=== PATIENT | male | born 1945 | race Caucasian/White ===

== ENCOUNTER 2019-07-26 13:22 | Observation (INO) | payer MEDICARE, SELFPAY ==
[2019-07-26] VITALS (9 sets, daily range): BP systolic 131–172; BP diastolic 74–86; PULSE 61–77; RESP 13–20; TEMP 35.9–36.7; O2SAT 97–99; BMI 35.2; BMI 35.3
--- NOTE | ~2019-07-26 | XR_ITS ---
EXAMINATION: XR chest 2V DATE: 07/26/2019 13:47 INDICATION: Left-sided chest pain TECHNIQUE: PA and lateral views of the chest are obtained. COMPARISON: 02/10/2019 FINDINGS: The lungs are free of acute opacities. There is no pleural effusion or pneumothorax. The ca rdiomediastinal silhouette is normal. There is moderate thoracic spondylosis. IMPRESSION: 1. No acute cardiopulmonary abnormality. Reviewed, dictated and finalized at location A.
--- NOTE | ~2019-07-26 | CT_ITS ---
EXAMINATION: CTA chest PE protocol DATE: 07/26/2019 15:00 INDICATION: Shortness of breath. TECHNIQUE: Computed tomography angiography (CTA) of the chest was performed with 100 mL Omnipaque-350 intravenous contrast timed to evaluate the pulmonary arteries. Coronal maximum intensity projection 3D-reconstructions were created by the technologist. Automated exposure control and iterative reconst ruction technique were employed. The dose-length product was 883.95 mGy-cm. COMPARISON: Chest CT 06/23/2017 FINDINGS: The lungs demonstrate mild atelectasis. There is mild scarring in paraspinal right lower lo be. No pleural effusion. The heart size is normal. There are calcifications of the aortic valve and c oronary arteries. There is no pulmonary embolus. There is severe cervical spondylosis and moderate th oracic spondylosis. IMPRESSION: 1. No pulmonary embolus. Reviewed, dictated and finalized at location A. IMPRESSION: 1. No pulmonary embolus.
--- NOTE | 2019-07-26 13:28 | ECG_ITS ---
Measurements Intervals [place] Rate: 66 P: 41 MI: 200 QRS: -17 QRSD: 105 T: 7 QT: 389 QTc: 408 Interpretive Statements SINUS RHYTHM VENTRICULAR COUPLET BORDERLINE AV CONDUCTION DELAY VOLTAGE CRITERIA FOR LVH BORDERLINE ECG Electronically Signed On 07-26-2019 15:28:48 CDT by Gbaino Juarez D.O.
[2019-07-26 13:48] LABS: Basophils Percent Auto 0.3 % (0.2-1.2); Eosinophils Absolute Auto 0.1 K/mm3 (0-0.3); Eosinophils Percent Auto 1.8 % (0-4.4); Hematocrit 42.5 % (42.0-52.0); Immature Granulocyte Absolute 0.02 K/mm3 (0.00-0.031); Immature Granulocyte Percent A 0.3 % (0-0.5); Lymphocytes Absolute Auto 1.25 K/mm3 (0.9-3.2); Lymphocytes Percent Auto 17.7 % (18.3-44.2); Mean Corpuscular HGB Conc 32.9 g/dl (32-36); Mean Corpuscular Hemoglobin 28.9 pg (26-34); Mean Corpuscular Volume 87.6 fl (80-100); Mean Platelet Volume 11.4 fl (7.4-10.4); Monocytes Absolute Auto 0.6 K/mm3 (0.1-0.6); Monocytes Percent Auto 9.1 % (2.6-8.5); Neutrophils Percent Auto 70.8 % (45.5-73.1); Platelet Count Result 219 k/mm3 (150-375); Red Blood Count 4.85 M/mm3 (4.6-6.20); Red Cell Distribution Width 14.1 % (11.5-14.5); White Blood Count 7.1 K/mm3 (4.5-10.0)
[2019-07-26 13:58] LABS: Partial Thromboplastin Time 28.1 SECONDS (22.3-36.8)
[2019-07-26 14:00] LABS: Blood Urea Nitrogen 17 mg/dL (9-20); Calcium 9.5 mg/dL (8.4-10.2); Carbon Dioxide 21 mmol/L (22-30); Chloride 104 mmol/L (98-107); Estimated CRCL calculation 79 ml/min; Estimated Glomerular Filt Rate > 60; Glucose 95 mg/dL (75-110); Potassium 3.8 mmol/L (3.4-5.0); Sodium 133 mmol/L (137-145)
[2019-07-26 14:08] LABS: Alanine Aminotransferase 20 U/L (4-50); Albumin Level 4.3 g/dL (3.5-5.1); Alkaline Phosphatase 37 U/L (38-126); Aspartate Amino Transferase 27 U/L (17-59); Bilirubin,Total 0.4 mg/dL (0.2-1.3)
[2019-07-26 14:11] LABS: Lipase 63 U/L (23-300)
[2019-07-26 14:12] LABS: Troponin I < 0.012 ng/mL (0.000-0.034)
[2019-07-26 14:21] LABS: NT Pro B Type Natriuretic Pept 86 PG/ML (5-100)
[2019-07-26 14:28] LABS: D Dimer 1.59 ug/mL (<0.48)
--- NOTE | 2019-07-26 16:18 | ED.CHESTPAIN ---
HPI - Chest Pain General Chief Complaint: Chest Pain <JA Jones Last Filed: 07/26/19 18:39> Stated Complaint: Chest Pain <JA Jones Last Filed: 07/26/19 18:39> Time Seen by Provider: 07/26/19 13:39 <JA Jones Last Filed: 07/26/19 18:39> Source: patient <JA Jones Last Filed: 07/26/19 18:39> Mode of arrival: ambulatory <JA Jones Last Filed: 07/26/19 18:39> Limitations: no limitations <JA Jones Last Filed: 07/26/19 18:39> History of Present Illness HPI narrative: Patient is a 73-year-old male who presents to emergency department for evaluation of left-sided chest pain under the breast with feeling diaphoretic and nauseous that occurred this morning lasted 2 hours and resolved patient on arrival to emergency department notes no pain patient did take some aspirin prior to arrival patient denies similar occurrence in the past. Patient on arrival resting comfortably in the room in no distress denies recent illness or sick contacts. Pain did not radiate <JA Jones Last Filed: 07/26/19 18:39> Related Data Home Medications: Home Medications Medication Instructions Recorded Confirmed omega-3 360 mx-elf-rpf-fish oil 1 cap PO DAILY 12/17/18 04/10/19 1,200 mg capsule,delayed release aspirin 81 mg tablet,delayed 81 mg PO DAILY 12/19/18 04/10/19 release cyanocobalamin (vitamin B-12) 1,000 mcg PO DAILY 12/19/18 04/10/19 1,000 mcg capsule melatonin 10 mg capsule PO 12/19/18 04/10/19 cyclobenzaprine 10 mg tablet 10 mg PO ONCE tablet 12/31/18 04/10/19 <JA Jones Last Filed: 07/26/19 18:39> Allergies/Adverse Reactions: Allergies Allergy/AdvReac Type Severity Reaction Status Date / Time No Known Allergies Allergy Verified 03/06/19 08:30 <JA Jones Last Filed: 07/26/19 18:39> Review of Systems Review of Systems: All systems reviewed & are unremarkable except as noted in HPI and below <Harry Camp PA-C - Last Filed: 07/26/19 18:39> [facility] Past Medical History Medical History: Medical History Aftercare following surgery Benign prostatic hyperplasia without lower urinary tract symptoms Bilateral hip pain Carpal tunnel syndrome on both sides Cervical spinal stenosis Chest pain in adult Complete eye exam, encounter for Complex tear of medial meniscus of left knee as current injury Effusion of knee joint right Effusion, left knee Elevated PSA Encounter for long-term (current) use of other medications Encounter for screening colonoscopy Erectile dysfunction Essential hypertension Evaluation of hearing impairment Fatigue GERD without esophagitis Hearing deficit Hearing loss History of elevated PSA History of rotator cuff strain Hyperlipidemia Injury of meniscus of left knee Left carpal tunnel syndrome Muscle strain of right upper back Myoclonus Nocturnal leg movements Obesity, unspecified (11/05/15) Other chronic pain Pain of left hip joint Paresthesia of both hands Peripheral edema Pre-op testing Primary osteoarthritis of left knee Right carpal tunnel syndrome Right medial knee pain Screening for hypothyroidism Screening for prostate cancer 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
[2019-07-26 17:08] LABS: Troponin I < 0.012 ng/mL (0.000-0.034)
--- NOTE | 2019-07-26 17:31 | ECG_ITS ---
Measurements Intervals [place] Rate: 64 P: 24 NH: 197 QRS: -30 QRSD: 121 T: 3 QT: 421 QTc: 435 Interpretive Statements SINUS RHYTHM INCOMPLETE LEFT BUNDLE BRANCH BLOCK POSSIBLE LEFT VENTRICULAR HYPERTROPHY BORDERLINE ECG Electronically Signed On 07-26-2019 18:59:32 CDT by Gabino Juarez D.O.
[2019-07-26] MEDS: NITROGLYCERIN SL 0.4 MG TABLET SUBLINGUAL (17:38)
--- NOTE | 2019-07-26 17:38 | PC.NURSE ---
1737 B/P 134/84 pain 2/10 1 nitro given 1742 B/P 133/94 pain 1/10 1 nitro given 1747 B/P 132/75 pain 0/10
[2019-07-26 18:33] LABS: Add Urine Microscopic? YES; Appearance Urine Clear (Clear); Bilirubin Urine Negative (Negative); Blood Urine 1+ (Negative); Color Urine Colorless (Yellow); Glucose Urine UA Negative (Negative); Ketones Urine Negative (Negative); Leukocyte Esterase Ur Negative LEU/UL (Negative); Nitrate Urine Negative (Negative); Protein Urine Negative (Negative); RBC Urine 0-2 /hpf (0-2); Specific Grav Ur 1.005 (1.001-1.035); Urobilinogen Urine Negative mg/dL (<2.0); WBC Urine 0-3 /hpf
--- NOTE | 2019-07-26 18:48 | PC.NURSE ---
184 no pain now after the second nitro
[2019-07-26 19:58] LABS: Cholesterol 156 mg/dL (0-200); HDL Direct 49 mg/dL; Triglycerides 107 mg/dL (<150)
[2019-07-26 20:09] LABS: LDL Cholesterol Direct 92 mg/dL
[2019-07-26 20:11] LABS: Troponin I < 0.012 ng/mL (0.000-0.034)
--- NOTE | 2019-07-26 20:33 | PC.NURSE ---
This patient, Armin Self, was admitted to IMU Room 232-01 at 1944. Patient/family oriented to hospital policies and general routines including ID bracelet, bed and alarms, visiting hours, pain management, procedures, bathroom and other care routines, personal items, smoking policy, room service/diet, and visiting hours. Valuables list has been completed. Information on how to activate the Rapid Response Team has been discussed. Patient/Family are encouraged to report perceived risks to care and to ask questions if they do not understand what they are told or what they should do.
--- NOTE | 2019-07-26 20:34 | PM.IMHP ---
H&P: HPI History of Present Illness Chief complaint: chest pain Narrative: Patient is a 73 yr old man who presents to ER for evaluation of chest pain. He is my regular cardiology patient who has a history of hypertension, central sleep apnea, dyslipidemia. Reports that 2 3 days ago he noted lightheadedness, nausea and heaviness of his legs. He drank some water and symptoms resolved. This morning he was up for a couple of hours not doing anything strenuous and noted sharp mid chest pain that then went to left lateral chest intermittently. Then when it returned it was a dull pain associated with similar symptoms as 3 days prior. He felt sweaty with it and decided to come in to ER. The pain was 2/10 in intensity. He was given NTG SL x 2 and pain resolved and has not returned. Troponins are negative x 3 sets. EKG is unremarkable. D-Dimer was 1.[address] chest done which was negative fo pulm embolism, but showed severe cervical spoldylosis and mod thoracic spondylosis. Cardiovascular Procedures Echo/MUGA:: Echo (EF 60%, mild LVH, grade I diastolic dysfunction, mild , mild TR, trace PI.) - 06/25/2017 Electrophysiology:: EKG (Sinus rhythm, cannot r/o septal infarct, age indeterminate.) - 06/06/2017 Stress Tests:: SEH (Negative for ischemia; exercised for 7 min, 35 seconds.) - 06/25/2017 MPI (Lexiscan myoview: Negative for ischemia.) - 07/27/2016 Venous Duplex (No DVT of both legs.) - 06/23/[address] (No pulmonary embolus.) - 06/23/2017 Sleep Study (Complex sleep apnea with ROLDAN and central apneas.) - 01/16/2018 Sleep Study (Mod ROLDAN. Had titration study but noted central apneas also.) - 08/07/2017 CXR (Negative.) - 06/06/2017 Review of Systems Review of Systems: All systems reviewed & are unremarkable except as noted in HPI and below Constitutional: Constitutional: Reports as per HPI, Denies chills and Denies weakness Cardiovascular: Cardiovascular: Reports as per HPI, Reports chest pain, Reports diaphoresis, Denies leg edema and Reports lightheadedness Respiratory: Respiratory: Reports as per HPI and Denies dyspnea Gastrointestinal: Gastrointestinal: Reports as per HPI and Denies abdominal pain Genitourinary: Genitourinary: Reports as per HPI Musculoskeletal: Musculoskeletal: Reports as per HPI Neurologic: Reports as per HPI and Denies headache(s) [facility] Past Medical History Medical History Aftercare following surgery Benign prostatic hyperplasia without lower urinary tract symptoms Bilateral hip pain Carpal tunnel syndrome on both sides Cervical spinal stenosis Chest pain in adult Complete eye exam, encounter for Complex tear of medial meniscus of left knee as current injury Effusion of knee joint right Effusion, left knee Elevated PSA Encounter for long-term (current) use of other medications Encounter for screening colonoscopy Erectile dysfunction Essential hypertension Evaluation of hearing impairment Fatigue GERD without esophagitis Hearing deficit Hearing loss History of elevated PSA History of rotator cuff strain Hyperlipidemia Injury of meniscus of left knee Left carpal tunnel syndrome Muscle strain of right upper back Myoclonus Nocturnal leg movements Obesity, unspecified (11/05/15) Other chronic pain Pain of left hip joint Paresthesia of both hands Peripheral edema Pre-op testing Primary osteoarthritis of left knee Right carpal tunnel syndrome Right medial knee pain Screening for hypothyroidism Screening for prostate cancer Spondylosis of cervical region without myelopathy or radiculopathy Testicular hypofunction Trochanteric bursitis of left hip Unintended weight gain Surgical History Surgical History History of right knee surgery Presence of left artificial knee joint Presence of right artificial knee joint Social History Social History
[2019-07-26] MEDS: CLONAZEPAM 0.5 MG TAB 2 MG PO (22:01)
[2019-07-26] MEDS: MELATONIN 5 MG TABLET 10 MG PO (22:01)
[2019-07-26] MEDS: SIMVASTATIN 20 MG TABLET 40 MG PO (22:01)
[2019-07-26] MEDS: METOPROLOL SUCCINATE EXT REL 50 MG TABCR PO (22:01)
[2019-07-27] VITALS (9 sets, daily range): BP systolic 119–125; BP diastolic 63–75; PULSE 44–80; RESP 18–20; TEMP 35.9–36.8; O2SAT 96–99
--- NOTE | 2019-07-27 00:32 | ECG_ITS ---
Measurements Intervals [place] Rate: 65 P: 34 ND: 218 QRS: -9 QRSD: 120 T: 7 QT: 439 QTc: 456 Interpretive Statements SINUS RHYTHM BORDERLINE AV CONDUCTION DELAY INCOMPLETE LEFT BUNDLE BRANCH BLOCK BORDERLINE ECG Electronically Signed On 07-27-2019 9:09:53 CDT by Gabino Juarez D.O.
[2019-07-27] MEDS: ASPIRIN 81 MG ENTERIC TABLET PO (09:08)
[2019-07-27] MEDS: CYANOCOBALAMIN 1,000 MCG TABLET 1000 MCG PO (09:08)
[2019-07-27] MEDS: LOSARTAN POTASSIUM 100 MG TABLET PO (09:08)
[2019-07-27] MEDS: ISOSORBIDE MONONITRATE 30 MG TAB.ER.24H PO (09:08)
[2019-07-27] MEDS: OMEGA 3 POLYUNSAT FATTY ACIDS 1 GM CAP PO (09:08)
[2019-07-27] MEDS: ACETAMINOPHEN 325 MG TABLET 650 MG PO (09:08)
--- NOTE | 2019-07-27 09:10 | PM.DS ---
DS: Admitting Diagnosis Admitting Diagnosis Admitting Diagnosis: Chest pain, unspecified DS: Summary Hospital Course Reason for hospitalization: Chest pain Hospital Course: Patient is a 73 yr old man who presents to ER for evaluation of chest pain. He is my regular cardiology patient who has a history of hypertension, central sleep apnea, dyslipidemia. Reports that 2-3 days ago he noted lightheadedness, nausea and heaviness of his legs. He drank some water and symptoms resolved. This morning he was up for a couple of hours not doing anything strenuous and noted sharp mid chest pain that then went to left lateral chest intermittently. Then when it returned it was a dull pain associated with similar symptoms as 3 days prior. He felt sweaty with it and decided to come in to ER. The pain was 2/10 in intensity. He was given NTG SL x 2 and pain resolved and has not returned. Troponins are negative x 3 sets. EKG is unremarkable. D-Dimer was 1.[address] chest done which was negative fo pulm embolism, but showed severe cervical spoldylosis and mod thoracic spondylosis. Chest pain has not returned. He is feeling well other than mild headache this monring. Vitals are stable. Physical exam: General: No acute distress, alert and ortiented, comfortable. Pulm: CTAB. CVS: Regular and normal rate. No murmur. Abd: Nontender, soft. Ext: No edema. Imp: 1. Chest pain. MO ruled out by series of troponins and EKG. Could be related to stable CAD, costochondritis, or radiculopathy pain from cervical arthritis. Start Isosorbide mononitrate 30 mg daily in case it is due to CAD. Cautioned with using erectile dysfunction medication such as Viagara or Cialis or the like, and that he would need to stop using nitrate for at least 48 hours or it can drop his BP precipitously to dangerous levels. He expressed understanding of this. May d/c home and f/u with in nex 4 days he has appointment already. F/U with me in 1-2 weeks for outpatient CTA of heart. 2. Hyperlipidemia:Continue home medications. 3. Hypertension: Stable. Continue home medication. 4. Central sleep apnea. Continue CPAP at bedtime. 5. Obesity. Activity: As tolerated but avoid strenuous activity until evaluated as outpatient. Diet: Healthy heart diet. Disposition: Home. Time Spent with Patient Time attestation: Total time spent providing and/or coordinating discharge services: DS: Data Data Completed and Pending Labs on day of discharge: Labs from last 24 hours 07/26/19 07/26/19 07/26/19 19:42 19:42 18:21 WBC RBC Hgb Hct MCV MCH MCHC RDW Plt Count MPV Immature Gran % (Auto) Neut % (Auto) Lymph % (Auto) [place] % (Auto) Eos % (Auto) Baso % (Auto) Lymph # (Auto) [place] # (Auto) Eos # (Auto) Baso # (Auto) Abs Immat Gran (auto) Absolute Neuts (auto) Absolute Nucleated RBC Nucleated RBC % PT INR APTT D-Dimer Sodium Potassium Chloride Carbon Dioxide BUN Creatinine Estim Creat Clear Calc Estimated GFR Glucose Calcium Total Bilirubin Direct Bilirubin AST ALT Alkaline Phosphatase Troponin I < 0.012 NT-Pro-B Natriuret Pep Total Protein Albumin Triglycerides 107 Cholesterol 156 LDL Cholesterol Direct 92 HDL Direct 49 Lipase Urine Color Colorless Urine Appearance Clear Urine pH 6.0 Ur Specific [place] 1.005 Urine Protein Negative Urine Glucose (UA) Negative Urine Ketones Negative Ur Blood (Man) 1+ H Urine Nitrate Negative Urine Bilirubin Negative Urine Urobilinogen Negative Leukocyte Esterase Rfl Negative Urine RBC 0-2 Urine WBC 0-3 07/26/19 07/26/19 07/26/19 16:28 13:35 13:35 WBC RBC Hgb Hct MCV MCH MCHC RDW Plt Count MPV Immature Gran % (Auto) Neut % (Auto) Lymph % (Auto) [place] % (Auto) Eos % (Auto) Baso % (Auto)
[2019-07-27] MEDS: FENOFIBRATE NANOCRYSTALLIZED 145 MG TABLET PO (09:52)
== END 2019-07-27 14:47 | disposition home or self-care (01) ==
LOC: ANHED 18:39 → ANHIMU 19:34
PROVIDERS: Emergency Medicine Emergency Medical Services; Admitting Provider Internal Medicine Cardiovascular Disease; Emergency Provider General Practice; PCP Family Medicine; Visit Provider Internal Medicine Cardiovascular Disease
DX: R07.9 Chest pain, unspecified (principal); E78.5 Hyperlipidemia, unspecified; I10 Essential (primary) hypertension; G47.31 Primary central sleep apnea; E66.9 Obesity, unspecified; Z68.35 Body mass index [BMI] 35.0-35.9, adult; N52.9 Male erectile dysfunction, unspecified; N40.0 Benign prostatic hyperplasia without lower urinary tract symptoms; M47.812 Spondylosis without myelopathy or radiculopathy, cervical region; Z79.82 Long term (current) use of aspirin; Z79.899 Other long term (current) drug therapy; Z96.653 Presence of artificial knee joint, bilateral
CPT/HCPCS: 36415; 71046; 71275; 80048; 80061; 80076; 81001; 83690; 83880; 84484; 85025; 85380; 85610; 85730; 93005; 99285; A9270; G0378; Q9967

== ENCOUNTER 2020-04-14 10:54 | Outpatient (CLI) | payer MEDICARE, SELFPAY ==
--- NOTE | ~2020-04-14 | US_ITS ---
EXAMINATION: US carotid duplex BI DATE: 04/14/2020 11:28 INDICATION: Cerebral atherosclerosis. Dizziness. TECHNIQUE: Grayscale, color Doppler, and pulsed Doppler images of the cervical carotid arteries were obtained. The degree of vessel stenosis is placed in one of the following categories: normal, <50%, 5 0-69%, >=70% but less than near-occlusion, near-occlusion, or total occlusion. Note that percent sten osis relative to normal distal artery lumen diameter is indirectly measured from velocity measurement s as described by Yuan, et al. Radiology 2003; 229:340-346. COMPARISON: None. FINDINGS: RIGHT: The right common carotid artery (CCA) peak systolic velocity (PSV) is 123 cm/s. The right internal ca rotid artery (ICA) PSV is 80 cm/s. The right ICA end-diastolic velocity (EDV) is 16 cm/s. The right I CA/CCA PSV ratio is 0.6. Grayscale and color Doppler images yield an estimate of <50% diameter reduct ion from plaque in the ICA. The external carotid artery (ECA) PSV is 133 cm/s. There is antegrade arlin w in the right vertebral artery. LEFT: The left CCA PSV is 105 cm/s. The left ICA PSV is 82 cm/s. The left ICA EDV is 22 cm/s. The left ICA/ CCA PSV ratio is 0.8. Grayscale and color Doppler images yield an estimate of <50% diameter reduction from plaque in the ICA. The ECA PSV is 95 cm/s. There is antegrade flow in the left vertebral artery . IMPRESSION: 1. <50% stenosis in the right internal carotid artery. 2. <50% stenosis in the left internal carotid artery. Reviewed, dictated and finalized at location B. L FARMER
== END 2020-04-14 10:55 | disposition home or self-care (01) ==
PROVIDERS: PCP Nurse Practitioner Family; Visit Provider Nurse Practitioner Family
DX: R09.89 Other specified symptoms and signs involving the circulatory and respiratory systems (principal); I65.23 Occlusion and stenosis of bilateral carotid arteries
CPT/HCPCS: 93880

== ENCOUNTER 2020-12-07 07:55 | Outpatient (CLI) | payer MEDICARE, SELFPAY ==
--- NOTE | ~2020-12-07 | XR_ITS ---
EXAMINATION: XR shoulder RT min 2V EXAM DATE: 12/07/2020 08:24 INDICATION: Pain On Lateral Prox Humerus X 1 Month. TECHNIQUE: The following right shoulder projections obtained: frontal projection with internal rotati on, Grashey, and axillary (4+ views). Comparison is made to prior examination from 03/20/2016. FINDINGS: No evidence of right shoulder rotator cuff calcific tendinosis. There is mild to moderat e glenohumeral joint, severe acromioclavicular joint primary osteoarthritis. There are no acute fract ures or dislocations identified. There is no subcutaneous gas. The soft tissue is unremarkable. T here are no radiopaque foreign bodies. IMPRESSION: Severe right acromioclavicular osteoarthritis. Reviewed, dictated and finalized at location B.
== END 2020-12-07 07:56 | disposition home or self-care (01) ==
LOC: CHSLAB 07:58
PROVIDERS: PCP Nurse Practitioner Family; Visit Provider Orthopaedic Surgery
DX: M25.511 Pain in right shoulder (principal)
CPT/HCPCS: 73030

== ENCOUNTER 2021-03-29 08:05 | Outpatient (CLI) | payer MEDICARE, SELFPAY ==
--- NOTE | ~2021-03-29 | XR_ITS ---
EXAMINATION: XR hip RT 2V w AP pelvis INDICATION: Right hip pain TECHNIQUE: AP view of the pelvis and two views of the right hip are obtained. COMPARISON: 11/18/2018 FINDINGS: Bone alignment is normal. There is no fracture. There is moderate osteoarthritis of the hip s. The soft tissues are unremarkable. There is moderate spondylosis of the visualized lumbar spine. IMPRESSION: 1. Osteoarthritis without acute osseous abnormality. Reviewed, dictated and finalized at location A. [facility]
== END 2021-03-29 08:06 | disposition home or self-care (01) ==
LOC: CHSIMG 08:10
PROVIDERS: PCP Nurse Practitioner Family; Visit Provider Orthopaedic Surgery
DX: M25.551 Pain in right hip (principal)
CPT/HCPCS: 73502

== ENCOUNTER 2021-03-30 07:52 | Outpatient (RCR) | payer MEDICARE, SELFPAY ==
--- NOTE | 2021-03-30 07:40 | PTOPEVAL ---
Thank you for referring Armin Self to [facility].? The patient is scheduled to be seen for therapy? __2__x/week for 8 visits. Please review, sign, date and return this plan of care JUAN DAVID. I agree with and certify that the following plan of care is medically necessary. Referring Physician Date Admitting Provider: Attending Provider: Carlo Vargas MD Referring Provider: *PT Outpatient Evaluation Start: 03/30/21 06:48 Freq: Status: Active Protocol: Document 03/30/21 06:53 MARY (Rec: 03/30/21 07:39 MARY [id number]) Therapy Assessment Status Assessment Status Assessment Status Evaluation Outpatient Past Medical History Neurological History Hx Neurological Disorders No Significant History Cardiovascular History Hx Chest Pain Yes Hx Hypercholesterolemia Yes Hx Hypertension Yes Respiratory History Hx Sleep Apnea Yes Gastrointestinal History Hx Gastroesophageal Reflux Disease Yes Genitourinary History Hx Genitourinary Disorders No Significant History Musculoskeletal History Hx Arthritis Yes Hx Joint Replacement Yes: BILATERAL KNEES Hematological History Hx Hematological Disorders No Significant History HEENT History Hx Tonsillectomy Yes Integumentary History Hx Skin Disorders No Significant History Reproductive History Hx Reproductive Disorders No Significant History Psychosocial History Hx Psychiatric Disorders No Significant History Pain History History of Any Previous or Ongoing No Significant History Instance of Pain Anesthesia History Hx Anesthesia Reactions No Significant History Other History Hx Other Surgeries Yes: CARPAL TUNNEL BILATERAL, HERNIA REPAIR A CHILD Evaluation Information Problem Diagnosis right hip djd, right hip pain Onset 03/30/20 Subjective Information Pt. reports that he developed Query Text:As Reported By Patient/ hip pain about 1 year ago. He Family reports that pain has gotten more intense since the beginning of this year. He reports that pain is most notable with walking and standing. He reports that after getting out of a seated position pain can be intense. He reports he can loosen up after a few steps. He states that pain does not necessarly disrupt his sleep. He describes pain in the area of
--- NOTE | 2021-04-26 07:48 | PTOPEVAL ---
Thank you for referring Armin Self to [facility]. Please review, sign, date and return this plan of care JUAN DAVID. I agree with and certify that the following plan of care is medically necessary. Referring Physician Date Admitting Provider: Attending Provider: Carlo Vargas MD Referring Provider: *PT Outpatient Evaluation Start: 03/30/21 06:48 Freq: Status: Active Protocol: Document 04/26/21 06:45 MARY (Rec: 04/26/21 07:48 MARY [id number]) Therapy Assessment Status Assessment Status Assessment Status Discharge Outpatient Past Medical History Neurological History Hx Neurological Disorders No Significant History Cardiovascular History Hx Chest Pain Yes Hx Hypercholesterolemia Yes Hx Hypertension Yes Respiratory History Hx Sleep Apnea Yes Gastrointestinal History Hx Gastroesophageal Reflux Disease Yes Genitourinary History Hx Genitourinary Disorders No Significant History Musculoskeletal History Hx Arthritis Yes Hx Joint Replacement Yes: BILATERAL KNEES Hematological History Hx Hematological Disorders No Significant History HEENT History Hx Tonsillectomy Yes Integumentary History Hx Skin Disorders No Significant History Reproductive History Hx Reproductive Disorders No Significant History Psychosocial History Hx Psychiatric Disorders No Significant History Pain History History of Any Previous or Ongoing No Significant History Instance of Pain Anesthesia History Hx Anesthesia Reactions No Significant History Other History Hx Other Surgeries Yes: CARPAL TUNNEL BILATERAL, HERNIA REPAIR A CHILD Evaluation Information Problem Diagnosis right hip djd, right hip pain Onset 03/30/20 Subjective Information Pt. reports that his pain is Query Text:As Reported By Patient/ less intense. He does have Family occassional bout of intense pain but much less frequent. He continues to describe most remaining pain in the area of the right buttock. He states that despite continued pain he notices progress. He continues to split wood and will get slight pain after splitting wood. He continues to exercise at home 3x/week. Pain Assessment Timing of Pain Assessment Timing of Pain Assessment Pre-Treatment Pain Scale Pain Scale Used Numeric (1 - 10) Self Report Pain Assessment
== END 2021-04-26 11:45 | disposition home or self-care (01) ==
LOC: CHSPT 07:52
PROVIDERS: Visit Provider Orthopaedic Surgery
DX: M16.11 Unilateral primary osteoarthritis, right hip (principal)
CPT/HCPCS: 97014; 97110; 97161; G0283

== ENCOUNTER 2021-04-26 07:48 | Outpatient (CLI) | payer MEDICARE, SELFPAY | END 2021-04-26 07:49 | disposition home or self-care (01) | LOC: CHSIMG 07:51 | PROVIDERS: PCP Nurse Practitioner; Visit Provider Orthopaedic Surgery | DX: M25.512 Pain in left shoulder (principal) | CPT/HCPCS: 99199 ==

== ENCOUNTER → 2021-05-17 07:43 | Outpatient (CLI) | payer MEDICARE, SELFPAY ==
--- NOTE | ~2021-05-17 | MR_ITS ---
EXAMINATION: MR hip RT wo con DATE: 05/17/2021 08:40 INDICATION: Right hip pain TECHNIQUE: Magnetic resonance imaging (MRI) of the right hip was performed without intravenous contr ast. Sequences included full-field axial PD-weighted FS FSE and T1-weighted FSE, coronal of the pelvi s with PD-weighted FS FSE, T2-weighted FSE and T1-weighted FSE, small field of view of the right hip with axial PD-weighted FS FSE, sagittal PD-weighted FS FSE, coronal PD-weighted FS FSE and coronal T2 weighted FSE. Additional radial T1-weighted FGR oriented orthogonal to the acetabular rim were obt ained for evaluation of the labrum. COMPARISON: None FINDINGS: Bones/labrum/cartilage: Mild lumbar dextro curvature with severe spondylosis. No fracture, avascular necrosis or pathologic m arrow replacing process. There is moderate osteoarthritis at the right hip with nonuniform joint spac e narrowing with cartilage loss greatest anterosuperiorly where it involves greater than 50% the cart ilage thickness. There is mild subarticular cystic change at the anterosuperior right acetabulum. Sev ere diffuse right labral degeneration with prominent thickening and diffuse amorphous increased signa l throughout the labrum. There is a multilobulated likely paravertebral cyst arising from the anteros uperior labrum which extends along the posterolateral margin of the right iliopsoas muscle which adelfo ures 3.3 x 2.0 x 2.2 cm. Additional likely moderate osteoarthritis at the left hip with additional brink barticular cystic change at the superolateral left acetabulum and suggestion of an additional left-si ded labral degeneration although this is not diagnostically evaluated on the larger field of view jessy ges. Fluid: Very small left hip joint effusion. Physiologic amount of fluid in the right hip joint. Soft tissues: Likely chronic partial tear of the right gluteus medius medius tendon involving the lateral facet eugenia tplate with 5 cm proximal retraction of the myotendinous junction of the anterior portion of the musc le which also demonstrates asymmetric moderate atrophy of the anterior portion of the muscle belly. N o atrophy of the posterior portion of the muscle with intact tendon extending to the posterior facet. There is also mild asymmetric atrophy of the right gluteus minimus with tendinopathy and partial tea r involving at least 50% of the cross-sectional area of the right gluteus minimus tendon. Moderate te ndinopathy of the left gluteus minimus and mild tendinopathy of the left gluteus medius tendons, both without discrete tears. The iliopsoas tendons are normal. Mild bilateral ischial bursitis with tendi nopathy of the bilateral proximal hamstring tendons, mild on the left and moderate on the right. On t he right there is a mild partial tear of the proximal right semimembranosus tendon. Small globular re gions of low signal intensity corresponding to heterotopic ossification consistent with either chroni c enthesopathy along the bilateral ischial tuberosities. Small left inguinal hernia containing both f at and small amount of fluid. 1.8 x 1.1 x 1.0 cm atrophic left undescended testis is seen along the i nferior margin of the inguinal hernia. Small right hydrocele. Limited evaluation of visceral organs o f the pelvis is unremarkable. No pathologically enlarged pelvic/inguinal lymphadenopathy. IMPRESSION: 1. Moderate right hip osteoarthritis with severe diffuse degenerative tearing of the right acetabular labrum. Similar findings suggested but not diagnostically evaluated at the contralateral left hip on the larger field of view images. 2. Multiloculated 3.3 x 2.0 x 2.2 cm likely prior labral cyst arising from the anterosuperior right a cetabulum and along the posterolateral margin of the right psoas muscle. 3. Tendinopathy of the bilateral gluteus medius and minimus tendons with partial tears of the right g luteus medius minimus and ant
== END ==
PROVIDERS: PCP Family Medicine; Visit Provider Orthopaedic Surgery
DX: M70.72 Other bursitis of hip, left hip (principal); M16.11 Unilateral primary osteoarthritis, right hip
CPT/HCPCS: 73721

== ENCOUNTER 2021-11-10 08:02 | Outpatient (CLI) | payer MEDICARE, SELFPAY ==
--- NOTE | ~2021-11-10 | NM_ITS ---
EXAMINATION: NM bone scan whole body DATE: 11/10/2021 11:45 INDICATION: Prostate cancer TECHNIQUE: 25.4 mCi Tc-99m HDP was administered intravenously. Delayed whole-body scintigrams were o btained. COMPARISON: Right hip MRI dated 05/17/2021, lumbar spine radiographs dated 11/05/[address] chest dated 07/26/2019 FINDINGS: Photopenic defects at the bilateral knees consistent with total knee arthroplasties. Small focus of l ikely degenerative uptake at the right patella. Typical pattern of relatively symmetric mild degenera tive joint centered uptake at the bilateral sternoclavicular and acromioclavicular joints and at the radial aspect of the carpi. Additional mild likely degenerative joint centered uptake at the dorsal a spect of the right midfoot. Increased uptake extending across the lower cervical spine with severe de generative disc disease evident dislocation on prior chest CT. There also several foci of mild uptake along the left and right sides of the thoracic spine which appear to correspond to multiple bridging or nearly bridging osteophytes consistent with diffuse idiopathic skeletal hyperostosis (DISH). Maynor tional prominent uptake at the right side of the upper lumbar spine which appears to correspond to co uple transverse process fractures at L1 and L2, bladder stone appearing still ununited. Mild increase d uptake along the right greater trochanter corresponding to small amount of enthesopathic ossificati on. No other suspicious foci of abnormal bone uptake to suggest metastatic disease. IMPRESSION: 1. No lesion suspicious for metastatic disease. Reviewed, dictated and finalized at location A.
== END 2021-11-10 08:03 | disposition home or self-care (01) ==
PROVIDERS: PCP Family Medicine; Visit Provider Urology
DX: C61 Malignant neoplasm of prostate (principal)
CPT/HCPCS: 78306; A9561

== ENCOUNTER 2022-05-02 01:50 | Day surgery (SDC) | payer MEDICARE, SELFPAY ==
[2022-04-20 14:15] VITALS: BMI 31.6
[2022-05-02 07:43] VITALS: BP 139/89; PULSE 64; RESP 18; TEMP 36.1; O2SAT 100
[2022-05-02] MEDS: LACTATED RINGERS 1,000 ML 150 ML IV CONT (07:46)
--- NOTE | 2022-05-02 08:26 | PM.HPGS ---
History of Present Illness History of Present Illness Consent: Risks, benefits, and alternatives have been discussed and questions answered. Patient agrees to proceed with procedure. Chief complaint: neoplasm screening Narrative: Armin Self is a 76 year old male Presents for screening colonoscopy. Patient's current weight appetite and bowel movements are normal. Patient denies abdominal pain. He has had no bleeding. Patient was found to have an adenomatous colon polyp removed at previous colonoscopy 2017. Patient states his brother had lung cancer. He is unaware of any family history of colon cancer or polyps. Review of Systems Review of Systems: Review of systems noncontributory. [facility] Past Medical History Medical History Benign prostatic hyperplasia without lower urinary tract symptoms Bilateral hip pain Carpal tunnel syndrome on both sides Cervical spinal stenosis Complex tear of medial meniscus of left knee as current injury Encounter for screening colonoscopy (~03/2017) Erectile dysfunction Essential hypertension Fatigue GERD without esophagitis Hearing loss History of elevated PSA Hyperlipidemia Injury of meniscus of left knee Left carpal tunnel syndrome Myoclonus Nocturnal leg movements Pain of left hip joint Primary osteoarthritis of left knee Prostate cancer Right carpal tunnel syndrome Right medial knee pain Right shoulder pain Spondylosis of cervical region without myelopathy or radiculopathy Testicular hypofunction Trochanteric bursitis of left hip Vasovagal syncope Surgical History Surgical History History of bilateral knee replacement History of carpal tunnel surgery (~2019) History of cataract surgery History of right knee surgery (~2013) Presence of left artificial knee joint (~2016) Presence of right artificial knee joint Family History Family History Father Hypertension Cerebrovascular accident Sibling Diabetes mellitus Carcinoma of colon Hypertension Social History Social History Smoking status: Never smoker Second hand tobacco smoke exposure: No Alcohol intake: current Alcohol use details: 24 pack per month Substance use: never Substance use type: does not use Living arrangements: with family Occupation/Education: retired Gender identity (if verbalized by the patient): Male Spiritual care concerns: No Meds Home Medications and Allergies Home Medications Medication Instructions Recorded Confirmed Type omega-3 360 hh-lkz-ylm-fish oil 1 cap PO DAILY 12/17/18 05/02/22 History 1,200 mg capsule,delayed release aspirin 81 mg tablet,delayed 81 mg PO DAILY 12/19/18 05/02/22 History release cyanocobalamin (vitamin B-12) 1,000 mcg PO DAILY 12/19/18 05/02/22 History 1,000 mcg capsule melatonin 10 mg capsule 10 mg PO HS sleep 12/19/18 05/02/22 History fenofibrate nanocrystallized 145 145 mg PO DAILY #90 tabs 12/22/21 05/02/22 Rx mg tablet isosorbide mononitrate 30 mg 30 mg PO QAM #90 tabs 12/26/21 05/02/22 Rx tablet,extended release 24 hr clonazepam 1 mg tablet 2 mg PO DAILY PRN sleep #60 tabs 02/20/22 05/02/22 Rx losartan 100 mg tablet 100 mg PO DAILY #90 tabs 03/22/22 05/02/22 Rx metoprolol succinate 50 mg 50 mg PO DAILY #90 tabs 03/22/22 05/02/22 Rx tablet,extended release 24 hr simvastatin 40 mg tablet 40 mg PO HS #90 tabs 03/22/22 05/02/22 Rx Allergies Allergy/AdvReac Type Severity Reaction Status Date / Time No Known Allergies Allergy Verified 05/02/22 07:41 Vital Signs Vital Signs - 24 hr 05/02/22 07:43 Temperature 97 F L Pulse Rate 64 Respiratory Rate 18 Blood Pressure 139/89 Pulse Oximetry 100 Oxygen Delivery Room Air Exam Narrative: Physical exam reveals patient be alert. Vit
--- NOTE | 2022-05-02 08:43 | WPDANESEPPF ---
Anes - Initial Pre Proc Eval Procedure: Operation Date: 05/02/22 09:00 Proposed Procedures p Screening Colonoscopy - Mainor Hancock MD Date/Time: 05/02/22 08:43 Surgeon: Mainor Hancock MD Pre Op Diagnosis: neoplasm screening Patient Data Age: 76 Gender: M Height: 1.75 m Weight: 97.5 kg Last Vital Signs Temp 97 F L 05/02/22 07:43 Pulse 64 05/02/22 07:43 Resp 18 05/02/22 07:43 BP 139/89 05/02/22 07:43 Pulse Ox 100 05/02/22 07:43 O2 Del Method Room Air 05/02/22 07:43 Allergies Allergy/AdvReac Type Severity Reaction Status Date / Time No Known Allergies Allergy Verified 05/02/22 07:41 Home Medications Medication Instructions Recorded Confirmed Type omega-3 360 es-jnn-rxe-fish oil 1 cap PO DAILY 12/17/18 05/02/22 History 1,200 mg capsule,delayed release aspirin 81 mg tablet,delayed 81 mg PO DAILY 12/19/18 05/02/22 History release cyanocobalamin (vitamin B-12) 1,000 mcg PO DAILY 12/19/18 05/02/22 History 1,000 mcg capsule melatonin 10 mg capsule 10 mg PO HS sleep 12/19/18 05/02/22 History fenofibrate nanocrystallized 145 145 mg PO DAILY #90 tabs 12/22/21 05/02/22 Rx mg tablet isosorbide mononitrate 30 mg 30 mg PO QAM #90 tabs 12/26/21 05/02/22 Rx tablet,extended release 24 hr clonazepam 1 mg tablet 2 mg PO DAILY PRN sleep #60 tabs 02/20/22 05/02/22 Rx losartan 100 mg tablet 100 mg PO DAILY #90 tabs 03/22/22 05/02/22 Rx metoprolol succinate 50 mg 50 mg PO DAILY #90 tabs 03/22/22 05/02/22 Rx tablet,extended release 24 hr simvastatin 40 mg tablet 40 mg PO HS #90 tabs 03/22/22 05/02/22 Rx Patient hx anesthesia problems: none Family hx anesthesia problems: none Results Review: All pre-operative results and documents have been reviewed as part of the pre-operative evaluation. [facility] Past Medical History Medical History Benign prostatic hyperplasia without lower urinary tract symptoms Bilateral hip pain Carpal tunnel syndrome on both sides Cervical spinal stenosis Complex tear of medial meniscus of left knee as current injury Encounter for screening colonoscopy (~03/2017) Erectile dysfunction Essential hypertension Fatigue GERD without esophagitis Hearing loss History of elevated PSA Hyperlipidemia Injury of meniscus of left knee Left carpal tunnel syndrome Myoclonus Nocturnal leg movements Pain of left hip joint Primary osteoarthritis of left knee Prostate cancer Right carpal tunnel syndrome Right medial knee pain Right shoulder pain Spondylosis of cervical region without myelopathy or radiculopathy Testicular hypofunction Trochanteric bursitis of left hip Vasovagal syncope Surgical History Surgical History History of bilateral knee replacement History of carpal tunnel surgery (~2018) History of cataract surgery History of right knee surgery (~2013) Presence of left artificial knee joint (~2015) Presence of right artificial knee joint Family History Family History Father Hypertension Cerebrovascular accident Sibling Diabetes mellitus Carcinoma of colon Hypertension Social History Social History Smoking status: Never smoker Second hand tobacco smoke exposure: No Alcohol intake: current Alcohol use details: 24 pack per month Substance use: never Substance use type: does not use Living arrangements: with family Occupation/Education: retired Gender identity (if verbalized by the patient): Male Spiritual care concerns: No Anes - Eval Final PreProcedure Day of Procedure 05/02/22 08:43 Patient weight: obese Heart: regular rate and rhythm Lungs: clear to auscultation Airway: Mallampati scale class II Neurological: alert and oriented Last oral intake: >/= 8 hours ASA classification: III Amanda
[2022-05-02 09:21] VITALS: BP 101/67; PULSE 58; RESP 20; TEMP 36.1; O2SAT 100
[2022-05-02 09:31] VITALS: BP 127/84; PULSE 60; RESP 20; TEMP 36.1; O2SAT 100
[2022-05-02 09:39] VITALS: BP 135/70; PULSE 61; RESP 20; TEMP 36.1; O2SAT 100
== END 2022-05-02 09:50 | disposition home or self-care (01) ==
PROVIDERS: PCP Family Medicine; Visit Provider Internal Medicine Gastroenterology
PROC: 0DJD8ZZ Inspection of Lower Intestinal Tract, Via Natural or Artificial Opening Endoscopic (ICD-10-PCS; CPT 45378; principal; 2022-05-02 09:00)
DX: Z12.11 Encounter for screening for malignant neoplasm of colon (principal); D12.4 Benign neoplasm of descending colon; K64.8 Other hemorrhoids; I10 Essential (primary) hypertension; K21.9 Gastro-esophageal reflux disease without esophagitis; E78.5 Hyperlipidemia, unspecified; Z85.46 Personal history of malignant neoplasm of prostate; E66.9 Obesity, unspecified; Z68.31 Body mass index [BMI] 31.0-31.9, adult
CPT/HCPCS: 45385; 88305; J2704; J7120

== ENCOUNTER → 2022-07-28 08:38 | Outpatient (CLI) | payer MEDICARE, SELFPAY ==
--- NOTE | ~2022-07-28 | XR_ITS ---
EXAM: XR wrist RT min 3V DATE: 07/28/2022 08:48 HISTORY: radial side pain after playing golf for 1 month . COMPARISON: X-ray hand 12/23/2020, images only. FINDINGS: Decreased mineralization. No fracture or dislocation. No lytic or blastic lesion. Degenera tive changes typical of osteoarthritis in the joints of the thumb, the MCP joints, triscaphe joint, r adial carpal joint, and most notably at the trapeziometacarpal joint. Subchondral cyst formation in t he lunate with some sclerosis. Ulnar positive variance. No erosion or periosteal change. Soft tissues within normal limits. IMPRESSION: No acute osseous finding in the right wrist. Polyarticular osteoarthritis. Reviewed, dictated and finalized at location K. IMPRESSION: No acute osseous finding in the right wrist. Polyarticular osteoart hritis.
== END ==
PROVIDERS: PCP Family Medicine; Visit Provider Nurse Practitioner Family
DX: S69.91XA Unspecified injury of right wrist, hand and finger(s), initial encounter (principal); X58.XXXA Exposure to other specified factors, initial encounter; M19.031 Primary osteoarthritis, right wrist
CPT/HCPCS: 73110

== ENCOUNTER 2022-09-12 09:00 | Outpatient (CLI) | payer MEDICARE, SELFPAY ==
--- NOTE | ~2022-09-12 | XR_ITS ---
AP view of the pelvis and AP and lateral views of the bilateral hips Clinical history: Pain Findings: No acute fracture or dislocation is seen. There is moderate degenerative change of the righ t hip joint, joint space narrowing and mild bony destructive change. There is mild degenerative lentz e of the left hip joint.. Soft tissues are unremarkable. Impression: Moderate right hip joint osteoarthritis. Mild left hip joint osteoarthritis. No fracture or dislocation. Reviewed, dictated and finalized at location M. Impression: Moderate right hip joint osteoarthritis. Mild left hip joint osteoarthritis. No fracture or dislocation.
== END 2022-09-12 09:01 | disposition home or self-care (01) ==
LOC: CHSIMG 09:02
PROVIDERS: PCP Family Medicine; Visit Provider Internal Medicine Cardiovascular Disease
DX: M25.552 Pain in left hip (principal); M25.551 Pain in right hip; M16.0 Bilateral primary osteoarthritis of hip
CPT/HCPCS: 73521

== ENCOUNTER 2022-09-12 12:31 | Outpatient (CLI) | payer MEDICARE, SELFPAY ==
--- NOTE | 2022-09-12 12:43 | ECHO_ITS ---
Patient Info Name: Armin Self Age: 76 years : 1945 Gender: Male Ht: 69 in Wt: 219 lbs BSA: 2.23 m2 HR: 69 bpm BP: 131 / 78 mmHg Technical Quality: Good Exam Date: 09/12/2022 12:57 PM Exam Location: [facility] Patient Status: Outpatient Admit Date: 09/12/2022 Staff Ordering Physician: Gabino Juarez DO Stogy Maker: Carmel Baltazar RDCS Attending Provider: Gabino Juarez DO Referring Physician: Larry BRITO; Exam Type: CA echo doppler color flow Study Info Indications I35.0 - Nonrheumatic aortic (valve) stenosis Complete two-dimensional, color flow and Doppler transthoracic echocardiogram is performed. Summary 1. Complete two-dimensional, color flow and Doppler transthoracic echocardiogram is performed. 2. Left ventricular chamber dimension is normal. 3. Left ventricular systolic function is normal, estimated at 55-60%. 4. There is mild concentric increased left ventricular wall thickness. 5. The left ventricular diastolic function is grade I diastolic dysfunction. 6. E/e' 8 is minimally elevated. 7. Global longitudinal strain is abnormal at -16.3%. 8. Left atrial chamber dimension is mildly enlarged. 9. There is severe aortic valve sclerosis. 10. There is mild aortic valve stenosis with a peak velocity of 255 cm/s, mean gradient of 10 mmHg, and aortic valve area of 1.6 cm2. 11. There is mild tricuspid valve regurgitation. 12. No pulmonary hypertension, estimated pulmonary arterial systolic pressure is 36 mmHg. Left Ventricle E/e' 8 is minimally elevated. Global longitudinal strain is abnormal at -16.3%. Left ventricular chamber dimension is normal. Left ventricular systolic function is normal, estimated at 55-60%. There is mild concentric increased left ventricular wall thickness. The left ventricular diastolic function is grade I diastolic dysfunction. Right Ventricle Right ventricular systolic function is normal and with normal TAPSE 2.6 cm. Right ventricular chamber dimension is normal. Left Atria Left atrial chamber dimension is mildly enlarged. Right Atria Right atrial chamber dimension is normal. Aortic Valve The aortic valve is trileaflet. There is severe aortic valve sclerosis. There is mild aortic valve stenosis with a peak velocity of 255 cm/s, mean gradient of 10 mmHg, and aortic valve area of 1.6 cm2. There is no aortic valve regurgitation. Pulmonic Valve There is no pulmonic regurgitation. Mitral Valve There is no mitral valve stenosis. There is no mitral valve regurgitation. Tricuspid Valve There is mild tricuspid valve regurgitation. No pulmonary hypertension, estimated pulmonary arterial systolic pressure is 36 mmHg. Pericardium/Pleural There is no pericardial effusion. Inferior Vena Cava Normal inferior vena cava with >50% collapse upon inspiration consistent with normal right atrial pressure, 5 mmHg. Aorta The aortic root size at the sinus of Valsalva is normal. Left Ventricular Outflow Tract Name Value Normal LVOT 2D LVOT Diameter 2.0 cm LVOT Doppler LVOT Peak Gradient 6 mmHg LVOT Mean Gradient 3 mmHg LVOT VTI 24 cm LVOT VTI/AV VTI Ratio
== END 2022-09-12 12:32 | disposition home or self-care (01) ==
LOC: ANHCARD 12:32
PROVIDERS: PCP Family Medicine; Visit Provider Internal Medicine Cardiovascular Disease
DX: I35.0 Nonrheumatic aortic (valve) stenosis (principal); I36.1 Nonrheumatic tricuspid (valve) insufficiency
CPT/HCPCS: 93306

== ENCOUNTER 2022-09-21 13:06 | Outpatient (CLI) | payer MEDICARE, SELFPAY ==
--- NOTE | ~2022-09-21 | XR_ITS ---
EXAMINATION: XR lg joint inject/asp w image DATE: 09/21/2022 13:50 INDICATION: Right hip arthritis. TECHNIQUE: A time-out was performed to verify the patient's name, date of , and procedure to b e performed. The procedure including the risks, benefits, and alternatives was discussed with the pat ient. Risks discussed included bleeding and infection. The patient understood the risks and agreed to proceed. The skin overlying the right hip joint was prepped and draped in usual sterile fashion. A nesthetic was administered with 1% lidocaine subcutaneously. A 22 G needle was advanced under fluoro scopic guidance into the joint. Subsequently, injectate consisting of 2 mL 0.5% bupivacaine and 1 m L 80 mg/mL Depo-Medrol was instilled. The needle was removed and the entry site was cleaned and dres sed. There were no immediate complications. Fluoroscopy exposure time was 0.0 minutes. The total num erlinda of images was 1. FINDINGS: Real-time fluoroscopy demonstrates the needle in the right hip joint. Patient's pain prior to procedure:03/24. Patient's pain following the procedure: 02/21. IMPRESSION: 1. Fluoroscopy guided right hip joint injection of local anesthetic and steroid with decrease in the patient's presenting pain. Reviewed, dictated and finalized at location A.
== END 2022-09-21 13:07 | disposition home or self-care (01) ==
PROVIDERS: PCP Family Medicine; Visit Provider Orthopaedic Surgery
DX: M16.11 Unilateral primary osteoarthritis, right hip (principal)
CPT/HCPCS: 20610; 77002; J1040

== ENCOUNTER 2022-10-10 09:27 | Outpatient (CLI) | payer MEDICARE, SELFPAY ==
--- NOTE | ~2022-10-10 | XR_ITS ---
Right Knee Technique: AP, lateral, and sunrise views were obtained. Clinical History: Pain Findings: No fracture or dislocation is seen. Right knee arthroplasty is in place. No hardware compli cation seen. Soft tissues are unremarkable. No joint effusion is seen. Impression: No acute abnormality. Right knee arthroplasty in place. Reviewed, dictated and finalized at location . Impression: No acute abnormality. Right knee arthroplasty in place.
--- NOTE | ~2022-10-10 | XR_ITS ---
Left Knee Technique: AP, lateral, and sunrise views were obtained. Clinical History: Pain Findings: No fracture or dislocation is seen. Left knee arthroplasty in place. No hardware complicati on seen. Soft tissues are unremarkable. No joint effusion is seen. Impression: No acute abnormality. Left knee arthroplasty in place. Reviewed, dictated and finalized at location . Impression: No acute abnormality. Left knee arthroplasty in place.
== END 2022-10-10 09:28 | disposition home or self-care (01) ==
LOC: CHSIMG 09:29
PROVIDERS: PCP Family Medicine; Visit Provider Orthopaedic Surgery
DX: M25.561 Pain in right knee (principal); M25.562 Pain in left knee; Z96.653 Presence of artificial knee joint, bilateral
CPT/HCPCS: 73564

== ENCOUNTER 2022-11-14 11:39 | Outpatient (CLI) | payer MEDICARE, SELFPAY ==
--- NOTE | ~2022-11-14 | US_ITS ---
EXAMINATION: US thyroid DATE: 11/14/2022 11:58 INDICATION: Thyroid nodule. TECHNIQUE: Multiple ultrasound images of the thyroid were obtained. COMPARISON: None. FINDINGS: The right thyroid lobe measures 4.4 x 1.8 x 1.7 cm. The left thyroid lobe measures 4.4 x 2.2 x 1.7 c m. In the left thyroid lobe, there is a 4 mm nodule. IMPRESSION: 1. Small thyroid nodule, likely not clinically significant. No follow-up is needed. Reviewed, dictated and finalized at location E. IMPRESSION: 1. Small thyroid nodule, likely not clinically significant. No follow-up is nee ded.
== END 2022-11-14 11:40 ==
PROVIDERS: PCP Family Medicine; Visit Provider Family Medicine
DX: E04.1 Nontoxic single thyroid nodule (principal)
CPT/HCPCS: 76536

== ENCOUNTER 2022-11-30 09:56 | Outpatient (CLI) | payer MEDICARE, SELFPAY ==
--- NOTE | ~2022-11-30 | NM_ITS ---
EXAMINATION: NM lyla stress w perfusion DATE: 11/30/2022 12:19 INDICATION: Other forms of dyspnea TECHNIQUE: Rest images were obtained following intravenous administration of 10.0 mCi Tc99m tetrofosm in (Myoview). The patient was infused intravenously with Lexiscan (Regadenoson). Then, 31.4 mCi Tc99m tetrofosmin (Myoview) was administered intravenously, and stress images were obtained. Data was sascha nstructed into short axis and horizontal and vertical long axis SPECT images. Gated SPECT images were also obtained. COMPARISON: None. FINDINGS: There is no definite reversible or fixed perfusion abnormality to suggest ischemia or infar ction. There is normal left ventricular chamber size, wall motion and ejection fraction. Left ventr icular ejection fraction measures >70%. IMPRESSION: 1. Normal myocardial perfusion at rest and during stress. 2. Left ventricular ejection fraction measuring >70%. Reviewed, dictated and finalized at location A.
--- NOTE | 2022-11-30 10:21 | EST_ITS ---
Patient Info Name: Armin Self Age: 77 years : 1945 Gender: Male Ht: 69 in Wt: 213 lbs BSA: 2.20 m2 HR: 72 bpm BP: 141 / 81 mmHg Heart Rhythm: Sinus Rhythm Exam Date: 11/30/2022 11:07 AM Exam Location: [facility] Stress Patient Status: Outpatient Admit Date: 11/30/2022 Staff Ordering Physician: Gabino Juarez DO Attending Provider: Gabino Juarez DO Exercise Technologist: Emily Braden CT Exercise Physician: Gabino Juarez DO Exam Type: CA stress lyla w NM Study Info Indications Z01.810 - Encounter for preprocedural cardiovascular examination A regadenoson stress test was performed. Summary 1. 1. Negative lexiscan stress test for ischemic ST changes by ECG criteria. 2. 2. Stable hemodynamics throughout the test. 3. 3. Nuclear scan to follow and will be reported separately. Please correlate with it. 4. 4. Patient informed of the above results. Protocol: Lexiscan Stress ECG Details Stage: REST Duration (min): 1 min : 30 sec HR (bpm): 73 SBP (mmHg): 141 DBP (mmHg): 81 Stage: REST Duration (min): 1 min : 51 sec HR (bpm): 82 SBP (mmHg): 141 DBP (mmHg): 81 Stage: REST Duration (min): 2 min : 44 sec HR (bpm): 72 SBP (mmHg): 141 DBP (mmHg): 81 Stage: REST Duration (min): 28 min : 23 sec HR (bpm): 70 SBP (mmHg): 141 DBP (mmHg): 81 Stage: STAGE 1 Duration (min): 1 min : 0 sec HR (bpm): 82 SBP (mmHg): 118 DBP (mmHg): 71 Stage: RECOVERY Duration (min): 1 min : 0 sec HR (bpm): 92 SBP (mmHg): 118 DBP (mmHg): 71 Stage: RECOVERY Duration (min): 2 min : 0 sec HR (bpm): 92 SBP (mmHg): 118 DBP (mmHg): 71 Stage: RECOVERY Duration (min): 2 min : 54 sec HR (bpm): 86 SBP (mmHg): 129 DBP (mmHg): 73 Rest HR: 70 bpm Peak HR: 93 bpm Rest Sys BP: 141 mmHg Peak Sys BP: 129 mmHg Max Pred HR: 145 bpm % Max Pred HR: 64 % Target HR: 123 bpm Max RPP: 11,997 bpm*mmHg Termination Reason: Completed protocol Cardiac Symptoms: Shortness of breath, Headache Total Time: 1 min : 0 sec Rest Beard BP: 81 mmHg Peak Beard BP: 73 mmHg Total Dose: 0.4 mg Resting ECG Sinus rhythm, cannot r/o septal infarct, age indeterminate. Stress ECG No ST changes. Arrhythmias None. Report Signatures
== END 2022-11-30 09:57 | disposition home or self-care (01) ==
PROVIDERS: PCP Family Medicine; Visit Provider Internal Medicine Cardiovascular Disease
DX: R06.09 Other forms of dyspnea (principal); Z01.810 Encounter for preprocedural cardiovascular examination
CPT/HCPCS: 78452; 93017; A9502; J2785

== ENCOUNTER 2022-12-14 11:58 | Outpatient (CLI) | payer MEDICARE, SELFPAY ==
[2022-12-14 13:12] LABS: Appearance Urine Clear (Clear); Bacteria Urine None Seen /hpf; Bilirubin Urine Negative (Negative); Blood Urine 1+ (Negative); Color Urine Yellow (Yellow); Glucose Urine UA Negative (Negative); Ketones Urine Negative (Negative); Leukocyte Esterase Ur Negative LEU/UL (Negative); Nitrate Urine Negative (Negative); Non Pathogenic Casts 0-2; Protein Urine Negative (Negative); RBC Urine 0-2 /hpf (0-2); Specific Grav Ur 1.015 (1.001-1.035); Squamous Epithelial Cell Urine None seen /hpf (Few); Urobilinogen Urine 0.2 mg/dL (<2.0); WBC Urine 0-5 /hpf; pH Urine 5.5 (5.0-9.0)
[2022-12-14 13:13] LABS: Albumin Level 4.6 g/dL (3.5-5.1)
[2022-12-14 13:18] LABS: Prothrombin Time 13.6 Seconds (11.1-14.7)
[2022-12-14 13:19] LABS: Partial Thromboplastin Time 26.7 SECONDS (22.3-36.8)
[2022-12-14 13:22] LABS: Add Urine Microscopic? YES
[2022-12-14 13:45] LABS: Hemoglobin A1C 5.6 % (<5.7)
[2022-12-14 18:40] LABS: Urine Cotinine NEGATIVE
== END 2022-12-14 11:59 | disposition home or self-care (01) ==
LOC: ANHSURGERY 12:04
PROVIDERS: PCP Family Medicine; Visit Provider Orthopaedic Surgery
DX: M16.11 Unilateral primary osteoarthritis, right hip (principal); Z01.818 Encounter for other preprocedural examination
CPT/HCPCS: 80307; 81001; 82040; 83036; 85610; 85730; 86850; 86900; 86901; 87081

== ENCOUNTER 2022-12-26 00:42 | Day surgery (SDC) | payer MEDICARE, SELFPAY ==
--- NOTE | 2022-12-14 11:56 | PC.NURSE ---
PRE-OP INSTRUCTIONS, PLEASE READ CAREFULLY Report to the Outpatient Waiting Room, entrance under the green pavilion located off [facility], at time _0630_ on date _12/26/22_. Planned Procedure Time: _0830_. Time changes happen often and if your time is changed the preop area will call you the afternoon before. - You and your visitor will be asked to self-screen and do not enter if you have any COVID symptoms. - A mask is optional within the hospital at this time. Patients may have clear liquids (water, carbonated beverages, clear teas, apple juice) until 3 hours prior to surgery( 0530 AM) with a maximum of 20 ounces. - No food from midnight until time of surgery Take the following medications with a SIP of water the morning of surgery: _ ISOSORBIDE, METOPROLOL, & TYLENOL IF NEEDED_ DO NOT STOP ANY OF YOUR OTHER PRESCRIPTION MEDICATIONS PRIOR TO SURGERY ?EXCEPT THE FOLLOWING Medications to discontinue per DR. SCHAEFER/DR. FRAZIER -_ASPIRIN 7 DAYS PRIOR TO SURGERY, Date to take last dose 12/18/22_ Medications to discontinue per ANESTHESIA -_VITAMINS/SUPPLEMENTS 3 DAYS PRIOR TO SURGERY, Date to take last dose 12/22/10_ Please no make-up, nail iranian, hairspray, perfume, deodorant, or body powder the day of surgery. No jewelry (including any body piercings) or valuables the day of surgery, leave them at home. Please take a shower or bath the night before, or the morning of, surgery with an antibacterial soap. Wear comfortable, loose fitting clothing. - Jewelry must be removed prior to entering the operating room. Rings and piercings that are not removed may be cut off. - The hospital will not accept responsibility for valuables. - Please leave all valuables, including medications, at home the day of surgery. If you are going home after surgery, a licensed driver license examiner must drive you home. - NO public transportation without another adult if you receive anesthesia. - We recommend that an adult stay with you for 24 hours following discharge. - We also recommend that you do not drive, make important decision, drink alcoholic beverages, or take any drugs that were not prescribed by your health care provider for at least 24 hours after your discharge time. Follow any additional instructions given to you from your surgeon. If you or anyone in your household have experienced Covid symptoms in the past week, please notify your surgeon or the nurse liaison at the phone number below for possible testing. Instructions given to _PATIENT_and asked if any additional questions and then verbalized understanding. Patient advised to call surgeon office or pre surgery nurse liaison [phone] if any additional questions.
[2022-12-14 12:14] VITALS: BP 144/80; PULSE 68; RESP 20; TEMP 37; O2SAT 99; BMI 33.1
[2022-12-26] VITALS (14 sets, daily range): BP systolic 116–195; BP diastolic 48–92; PULSE 50–91; RESP 12–20; TEMP 36.2–36.9; O2SAT 96–100
--- NOTE | ~2022-12-26 | XR_ITS ---
Right Hip Technique: Portable AP view Clinical History: Status post hip arthroplasty Findings: Patient is status post right hip arthroplasty. Orthopedic hardware alignment appears anatom ic. No hardware complication is evident. Subcutaneous emphysema and swelling is likely postoperative in nature. No acute osseous fracture is seen. Impression: Status post right hip arthroplasty, without evidence of hardware complication. Reviewed, dictated and finalized at location M. ANICAL OPERATOR Impression: Status post right hip arthroplasty, without evidence of hardware complication.
[2022-12-26] MEDS: LACTATED RINGERS 1,000 ML 30 ML IV CONT ×2 (07:00→12:31)
[2022-12-26] MEDS: TRANEXAMIC ACID 1,000MG/ISO100 1,000 MG/100 ML BAG 200 MG IVPB (07:00)
--- NOTE | 2022-12-26 07:12 | WPDANESEPPF ---
Anes - Initial Pre Proc Eval Procedure: Operation Date: 12/26/22 08:30 Proposed Procedures p Right Total Hip Arthroplasty - Carlo Vargas MD Date/Time: 12/26/22 07:12 Surgeon: Carlo Vargas MD Pre Op Diagnosis: right hip DJD Patient Data Age: 77 Gender: M Height: 1.73 m Weight: 98.8 kg Last Vital Signs Temp 37.0 C 12/14/22 12:14 Pulse 68 12/14/22 12:14 Resp 20 12/14/22 12:14 BP 144/80 H 12/14/22 12:14 Pulse Ox 99 12/14/22 12:14 O2 Del Method Room Air 12/14/22 12:14 Allergies Allergy/AdvReac Type Severity Reaction Status Date / Time No Known Allergies Allergy Verified 12/14/22 12:16 Home Medications Medication Instructions Recorded Confirmed Type omega-3 360 ek-vvt-phy-fish oil 1 cap PO DAILY 12/17/18 12/14/22 History 1,200 mg capsule,delayed release aspirin 81 mg tablet,delayed 81 mg PO DAILY 12/19/18 12/14/22 History release cyanocobalamin (vitamin B-12) 1,000 mcg PO DAILY 12/19/18 12/14/22 History 1,000 mcg capsule melatonin 10 mg capsule 10 mg PO HS PRN sleep 12/19/18 12/14/22 History losartan 100 mg tablet 100 mg PO DAILY #90 tabs 09/19/22 12/14/22 Rx clonazepam 1 mg tablet 2 mg PO DAILY PRN sleep #60 tabs 09/30/22 12/14/22 Rx metoprolol succinate 50 mg 50 mg PO DAILY #90 tabs 09/30/22 12/14/22 Rx tablet,extended release 24 hr ferrous sulfate 325 mg (65 mg 325 mg PO .2 times weekly 11/14/22 12/14/22 History iron) tablet isosorbide mononitrate 30 mg 30 mg PO DAILY 11/14/22 12/14/22 History tablet,extended release 24 hr simvastatin 40 mg tablet 40 mg PO QHS 11/14/22 12/14/22 History acetaminophen 500 mg tablet 1,000 mg PO QID PRN Pain (Scale 12/14/22 12/14/22 History Score 1-3) fenofibrate nanocrystallized 145 145 mg PO DAILY #90 tabs 12/14/22 12/14/22 Rx mg tablet soy isoflavone-black cohosh 1 cap PO 12/14/22 History root-magnolia bark 155 mg capsule (Estroven) chlorhexidine gluconate 4 % 1 applic topical ONCE #237 mL 12/15/22 Rx topical liquid (Hibiclens) Patient hx anesthesia problems: none Family hx anesthesia problems: none Results Review: All pre-operative results and documents have been reviewed as part of the pre-operative evaluation. FOR[facility]LY [facility] Past Medical History Medical History Carpal tunnel syndrome on both sides Cervical spinal stenosis Erectile dysfunction Essential hypertension Fatigue GERD without esophagitis Hearing loss Hyperlipidemia Nocturnal leg movements Prostate cancer Right hip pain Spondylosis of cervical region without myelopathy or radiculopathy Testicular hypofunction Surgical History Surgical History History of bilateral carpal tunnel release (~03/2018) History of left knee surgery (~07/2016) Left knee arthroscopy, partial medial meniscectomy and chondroplasty. History of right knee surgery (~02/2014) Right knee arthroscopy with partial medial meniscectomy and major synovectomy and chondroplasty Presence of left artificial knee joint (~12/2016) Presence of right artificial knee joint (~10/2014) Family History Family History Father Hypertension Cerebrovascular accident Sibling Diabetes mellitus Carcinoma of colon Hypertension Social History Social History Smoking status: Never smoker Second hand tobacco smoke exposure: No Additional smoking assessment comments: PT DENIES ALL FORMS OF TOBACCO USE Alcohol intake: current Alcohol use details: 24 PK/MONTH Substance use: never Substance use type: does not use Lack of Transportation: No Lack of Food: Never True Current Housing: I Have Housing Concerned About Future Housing: No Difficulty Paying Gas/Electric Bills: No Difficulty Paying for Meds: No Currently Unemployed: No [employer]
[2022-12-26] MEDS: ACETAMINOPHEN 500 MG TABLET 1000 MG PO (08:00)
--- NOTE | 2022-12-26 08:59 | WPDHPUPDATE1 ---
History and Physical Update Update Date/Time: 12/26/22 08:59 History and Physical has been reviewed, including an updated exam of the patient. There are NO changes in the patient's condition. Risks, benefits, and alternatives have been discussed and questions answered. Patient agrees to proceed with procedure.
[2022-12-26] MEDS: ceFAZolin 2 GM/D5W 50 ML 2 GM/50 ML BAG IVPB ×2 (09:46→17:18)
[2022-12-26] MEDS: TRANEXAMIC ACID 1,000 MG/10 ML AMPUL 1000 MG IV PUSH (10:52)
--- NOTE | 2022-12-26 12:01 | W.PM.PROC2 ---
Procedure Note - Detailed Date of Procedure 12/26/22 Pre-op Diagnosis right hip DJD Post-op Diagnosis Same Procedure Performed R NILSON Surgeon Carlo Vargas MD Anesthesia General Description of Procedure THE PATIENT WAS TAKEN TO THE OPERATING ROOM IN STABLE CONDITION AND WAS PLACED IN THE LATERAL DECUBITUS AND THE RIGHT LOWER EXTREMITY WAS PREPPED AND DRAPED IN THE STERILE FASHION. INCISION WAS MADE IN THE POSTERIOR LATERAL SIDE OF THE HIP, DOWN TO THE FASCIA LAYER. THE FASCIA WAS INCISED. THE HIP WAS EXPOSED. THE SHORT EXTERNAL ROTATORS WERE EXPOSED. THE SCIATIC NERVE WAS IDENTIFIED. INCISION WAS MADE THROUGH THE SHORT EXTERNAL ROTATORS AND THE CAPSULE OF THE HIP JOINT. THE HIP WAS DISLOCATED. AN OSTEOTOMY WAS MADE TO THE FEMORAL NECK ABOUT 1 CM PROXIMAL TO THE LESSER TROCHANTER. THE ACETABULUM WAS EXPOSED. THERE WAS SEVERE DJD SEEN. THE ACETABULUM WAS REAMED TO 55 MM. A 55 MM TRIAL WAS PLACED IN 35 DEG OF ABDUCTION AND ANTEVERSION WAS IN ALIGNMENT WITH THE TRANS ACETABULAR LIGAMENT. THE FIT WAS EXCELLENT. THE TRIAL WAS REMOVED. A 56 MM BIOMET G7 COMPONENT WAS THEN TAPPED IN TO PLACE IN 35 DEG OF ABDUCTION AND ANTEVERSION IN ALIGNMENT WITH THE TRANSVERSE ACETABULAR LIGAMENT. THE FIT WAS EXCELLENT. THE ACETABULAR LINER WAS PLACED AND CHECKED FOR STABILITY. NEXT THE FEMUR WAS PREPARED WITH INITIAL CANAL FINDER THEN SEQUENTIAL BROACHING WITH A TAPERLOC HIP SYSTEM, UNTIL A 10 BROACH FIT WELL IN 15 OF ANTEVERSION. A +3 HIGH OFFSET NECK WITH 36 MM HEAD TRIAL WAS PLACED. THE SHUCK TEST WAS EXCELLENT AND THE STABILITY IN FLEXION AND ROTATION WAS EXCELLENT. LEG LENGTHS WERE GROSSLY EQUAL. TRIALS WERE REMOVED. A BIOMET TAPERLOC 10 STEM WAS PLACED WITH A HIGH D OFFSET NECK. THE FIT WAS EXCELLENT IN 15 DEG OF ANTEVERSION. A +3 CERAMIC 36 MM FEMORAL HEAD WAS PLACED. THE HIP WAS TRIALED AND THE STABILITY WAS EXCELLENT WERE THE LEG LENGTHS AND THE SHUCK TEST. THE WOUND WAS IRRIGATED WITH STERILE BETADINE AND WATER FOR 3 MIN. THEN WASHED AGAIN. THE SCIATIC NERVE WAS IDENTIFIED AGAIN. THE CAPSULE AND THE EXTERNAL ROTATORS WERE APPROXIMATED WITH NUMBER 1 VICRYL. THE FASCIA WITH No 2 QUIL AND THE SUB CUTANEOUS LAYER WITH 2-0 ABSORBABLE SUTURE AND A RUNNING 3-0 SUBCUTICULAR STITCH FOR THE SKIN. DERMABOND WAS PLACED AND STERILE DRESSING WAS APPLIED. PATIENT WAS PLACED BACK ON TO THE SUPINE POSITION AND WAS EXTUBATED Estimated Blood Loss -300.0 Complications No immediate complications Condition Stable Disposition PACU
--- NOTE | 2022-12-26 12:02 | SUR.PHASEI ---
[address] Vargas at this time.
[2022-12-26] MEDS: fentaNYL CITRATE INJ (*CRX) 100 MCG/2 ML VIAL 25 MCG IV PUSH ×8 (12:24→12:48)
[2022-12-26] MEDS: KETOROLAC 15 MG/ML VIAL (*BKC) IV PUSH ×3 (12:31→23:18)
[2022-12-26] MEDS: HYDROmorphone HCL INJ (*CRX) 1 MG/ML SYR 0.5 MG IV PUSH (13:12)
--- NOTE | 2022-12-26 13:51 | PC.NURSE ---
This patient, Armin Self, was admitted to -. Patient/family oriented to hospital policies and general routines including ID bracelet, bed and alarms, visiting hours, pain management, procedures, bathroom and other care routines, personal items, smoking policy, room service/diet, and visiting hours. Information on how to activate the Rapid Response Team has been discussed. Patient/Family are encouraged to report perceived risks to care and to ask questions if they do not understand what they are told or what they should do.
[2022-12-26] MEDS: HYDROcodone/acetaminophen (*CRX) 7.5-325 MG TABLET 1 TAB PO ×2 (15:38→20:38)
[2022-12-26] MEDS: SENNA/DOCUSATE SODIUM TABLET 2 TAB PO (17:18)
[2022-12-26] MEDS: SIMVASTATIN 20 MG TABLET 40 MG PO (20:38)
[2022-12-26] MEDS: ASPIRIN 325 MG ENTERIC TABLET PO (20:38)
[2022-12-26] MEDS: FAMOTIDINE 20 MG TABLET PO (20:39)
[2022-12-26] MEDS: clonazePAM (*CRX) 0.5 MG TABLET PO (20:39)
[2022-12-27] VITALS (8 sets, daily range): BP systolic 110–146; BP diastolic 42–82; PULSE 54–84; RESP 16–18; TEMP 36.1–36.8; O2SAT 96–100
[2022-12-27] MEDS: ceFAZolin 2 GM/D5W 50 ML 2 GM/50 ML BAG IVPB ×2 (02:10→09:03)
[2022-12-27] MEDS: KETOROLAC 15 MG/ML VIAL (*BKC) IV PUSH ×2 (05:34→12:57)
[2022-12-27 05:36] LABS: Basophils Percent Auto 0.2 % (0.2-1.2); Eosinophils Absolute Auto 0.1 K/mm3 (0-0.3); Eosinophils Percent Auto 1.2 % (0-4.4); Hematocrit 31.1 % (42.0-52.0); Hemoglobin 9.8 g/dL (14.0-18.0); Immature Granulocyte Absolute 0.02 K/mm3 (0.00-0.031); Immature Granulocyte Percent A 0.3 % (0-0.5); Lymphocytes Absolute Auto 0.81 K/mm3 (0.9-3.2); Lymphocytes Percent Auto 12.5 % (18.3-44.2); Mean Corpuscular HGB Conc 31.5 g/dl (32-36); Mean Corpuscular Hemoglobin 29.1 pg (26-34); Mean Corpuscular Volume 92.3 fl (80-100); Mean Platelet Volume 10.6 fl (7.4-10.4); Monocytes Absolute Auto 0.6 K/mm3 (0.1-0.6); Monocytes Percent Auto 9.7 % (2.6-8.5); Neutrophils Percent Auto 76.1 % (45.5-73.1); Platelet Count Result 135 k/mm3 (150-375); Red Blood Count 3.37 M/mm3 (4.6-6.20); Red Cell Distribution Width 13.1 % (11.5-14.5); White Blood Count 6.5 K/mm3 (4.5-10.0)
[2022-12-27 06:03] LABS: Anion Gap 5 mmol/L (8-16); Blood Urea Nitrogen 20 mg/dL (9-20); Calcium 8.6 mg/dL (8.4-10.2); Carbon Dioxide 27 mmol/L (22-30); Chloride 105 mmol/L (98-107); Estimated CRCL calculation 79 ml/min; Estimated Glomerular Filt Rate > 60; Glucose 107 mg/dL (65-110); Sodium 137 mmol/L (137-145)
[2022-12-27] MEDS: HYDROcodone/acetaminophen (*CRX) 7.5-325 MG TABLET 1 TAB PO (09:00)
[2022-12-27] MEDS: ASPIRIN 325 MG ENTERIC TABLET PO (09:00)
[2022-12-27] MEDS: SENNA/DOCUSATE SODIUM TABLET 2 TAB PO (09:00)
[2022-12-27] MEDS: polyethylene glycoL 3350 17 GM POWD.PACK PO (09:00)
[2022-12-27] MEDS: FAMOTIDINE 20 MG TABLET PO (09:00)
[2022-12-27] MEDS: ISOSORBIDE MONONITRATE 30 MG TAB.ER.24H PO (09:00)
[2022-12-27] MEDS: LOSARTAN POTASSIUM 100 MG TABLET PO (09:01)
[2022-12-27] MEDS: METOPROLOL SUCCINATE EXT REL 50 MG TABCR PO (09:01)
[2022-12-27] MEDS: FERROUS SULFATE 325 MG TABLET DR PO (09:03)
[2022-12-27 12:05] LABS: Glucose Point of Care 121 mg/dl (65-105)
--- NOTE | 2022-12-27 15:47 | PM.PNORT ---
Progress Note: A&P Assessment and Plan (1) Degenerative joint disease of right hip: Qualifiers: Osteoarthritis type: primary Qualified Code(s): M16.11 - Unilateral primary osteoarthritis, right hip Code(s): M16.11 - Unilateral primary osteoarthritis, right hip Status: Acute Assessment and Plan: POD 1 DOING WELL. OK TO DEC HOME F/U IN 3 WEEKS. Subjective Subjective Date/Time Seen: 12/27/22 15:47 Interval history: POD 1 DOING WELL. PAIN WELL CONTROLLED. NO CALF PAIN Exam Extrem: Other: VSS AFEBRILE DRESSING DRY NV INTACT NEG HOMANS SIGN Objective Data Vital Signs Vital Signs: Vital Signs - 24 hr 12/26/22 23:12 12/27/22 03:12 12/27/22 07:44 Temperature 36.9 C 36.7 C 36.1 C L Pulse Rate 76 58 L 54 L Respiratory Rate 18 18 18 Blood Pressure 134/48 L 110/60 127/42 L Pulse Oximetry 97 96 97 Oxygen Delivery 12/27/22 08:10 12/27/22 08:38 12/27/22 08:15 Temperature Pulse Rate Respiratory Rate Blood Pressure Pulse Oximetry 97 Oxygen Delivery Room Air Room Air Room Air 12/27/22 09:01 12/27/22 09:00 12/27/22 09:00 Temperature Pulse Rate 84 84 Respiratory Rate Blood Pressure 132/64 Pulse Oximetry 100 Oxygen Delivery Room Air 12/27/22 11:13 12/27/22 11:32 12/27/22 14:30 Temperature 36.8 C 36.7 C Pulse Rate 62 77 Respiratory Rate 16 16 Blood Pressure 124/76 146/82 H Pulse Oximetry 97 99 Oxygen Delivery Intake/Output Intake/Output: Intake & Output 12/24/22 12/25/22 12/26/22 12/27/22 23:59 23:59 23:59 23:59 Intake Total 2740 930 Balance 2740 930 Meds/Results Medications: Active Medications Generic Name Dose Route Start Last Admin Trade Name Freq PRN Reason Stop Dose Admin Acetaminophen 650 mg 12/26/22 13:27 Acetaminophen 325 Mg Tablet PO Q6H PRN Mild Pain (1-3) or Fever Hydrocodone Bitart/Acetaminophen 1 tab 12/26/22 13:27 12/27/22 09:00 Hydrocodone/Acetaminophen (*Crx) 7.5-325 Mg Tablet PO 1 tab Q3H PRN Administration Pain Rated 4-6 Hydrocodone Bitart/Acetaminophen 2 tab 12/26/22 13:27 Hydrocodone/Acetaminophen (*Crx) 7.5-325 Mg Tablet PO Q6H PRN Pain Rated 7-10 Aspirin 325 mg 12/26/22 21:00 12/27/22 09:00 Aspirin 325 Mg Enteric Tablet PO 325 mg Q12HR TAYLOR Administration Clonazepam 1 - 2 mg 12/26/22 13:27 12/26/22 20:39 Clonazepam (*Crx) 0.5 Mg Tablet PO 2 mg HS PRN Administration sleep Diazepam 5 mg 12/26/22 13:27 Diazepam (*Crx) 5 Mg Tablet PO Q6H PRN Anxiety/Muscle Spasm Famotidine 20 mg 12/26/22 21:00 12/27/22 09:00 Famotidine 20 Mg Tablet PO 20 mg Q12HR TAYLOR Administration Ferrous Sulfate 325 mg 12/27/22 09:00 12/27/22 09:03 Ferrous Sulfate [address] PO 325 mg [id number] TAYLOR Administration Hydroxyzine HCl 50 mg 12/26/22 13:27 Hydroxyzine Hcl 25 Mg Tablet PO Q4H PRN Itching Isosorbide Mononitrate 30 mg 12/27/22 09:00 12/27/22 09:00 Isosorbide Mononitrate 30 Mg Tab.Er.24h PO 30 mg DAILY TAYLOR Administration Ketorolac Tromethamine 15 mg 12/26/22 18:00 12/27/22 12:57 Ketorolac 15 Mg/Ml Vial (*Bkc) IV PUSH 12/27/22 18:01 15 mg Q6HR TAYLOR Administration Losartan Potassium 100 mg 12/27/22 09:00 12/27/22 09:01 Losartan Potassium 100 Mg Tablet PO 100 mg DAILY TAYLOR Administration Metoprolol Succinate 50 mg 12/27/22 09:00 12/27/22 09:01 Metoprolol Succinate Ext Rel 50 Mg Tabcr PO 50 mg DAILY TAYLOR Administration Naloxone HCl 0.1 mg 12/26/22 13:27 Naloxone Hcl 0.4 Mg/Ml Vial IV PUSH Q2M PRN Opiate Reversal Ondansetron HCl 4 mg 12/26/22 13:27 Ondansetron Inj 4 Mg/2 Ml Vial IV PUSH Q4H PRN Nausea And Vomiting Polyethylene Glycol 17 gm 12/27/22 09:00 12/27/22 09:00 Polyethylene Glycol 3350 17 Gm Powd.Pack PO 17 gm QAM TAYLOR Administration Senna/Docusate Sodium 2 tab 12/26/22 1
--- NOTE | 2022-12-27 16:11 | PM.DS ---
DS: Admitting Diagnosis Discharge Date 12/27/22 Admitting Diagnosis RIGHT HIP DJD DS: Discharge Diagnosis Discharge Diagnosis (1) Degenerative joint disease of right hip: Qualifiers: Osteoarthritis type: primary Qualified Code(s): M16.11 - Unilateral primary osteoarthritis, right hip Code(s): M16.11 - Unilateral primary osteoarthritis, right hip Status: Acute DS: Summary Hospital Course Reason for hospitalization: RIGHT NILSON Hospital Course: PATIENT WAS ADMITTED S/P TOTAL HIP ARTHROPLASTY FOR POSTOPERATIVE MEDICAL MANAGEMENT, PAIN CONTROL AND MOBILIZATION WITH PHYSICAL AND OCCUPATIONAL THERAPY. THE PATIENT PROGRESSED WELL WITH PT/OT. LABS AND VITALS REMAINED STABLE AND PAIN WELL CONTROLLED. THE PATIENT HAS BEEN CLEARED TO BE DISCHARGED HOME. FOLLOW UP APPOINTMENT SCHEDULED. DISCHARGE INSTRUCTIONS DISCUSSED AT LENGTH WITH THE PATIENT. MEDICATIONS REVIEWED. Status at Discharge Cognitive/behavioral status at discharge: STABLE Time Spent with Patient Time attestation: Total time spent providing and/or coordinating discharge services: DS: Data Data Completed and Pending Labs on day of discharge: Labs from last 24 hours 12/27/22 12/27/22 11:57 05:22 WBC 6.5 RBC 3.37 L Hgb 9.8 L D Hct 31.1 L MCV 92.3 MCH 29.1 MCHC 31.5 L RDW 13.1 Plt Count 135 L MPV 10.6 H Immature Gran % (Auto) 0.3 Neut % (Auto) 76.1 H Lymph % (Auto) 12.5 L [place] % (Auto) 9.7 H Eos % (Auto) 1.2 Baso % (Auto) 0.2 Lymph # (Auto) 0.81 L [place] # (Auto) 0.6 Eos # (Auto) 0.1 Baso # (Auto) 0.0 Abs Immat Gran (auto) 0.02 Absolute Neuts (auto) 5.0 Absolute Nucleated RBC 0.0 Nucleated RBC % 0.0 Sodium 137 Potassium 4.0 Chloride 105 Carbon Dioxide 27 Anion Gap 5 L BUN 20 Creatinine 0.80 Estim Creat Clear Calc 79 Estimated GFR > 60 Glucose 107 POC Capillary Glucose 121 H Calcium 8.6 Procedures/Treatments: RIGHT NILSON Discharge Plan Discharge Patient Disposition: Home, Self-Care Discharge Instructions: CARLO VARGAS M.D. [facility] [address] [facility] [address] [place] [address] POST OPERATIVE DISCHARGE INSTRUCTIONS FOLLOWING TOTAL HIP REPLACEMENT SURGERY ? Your dressing will be changed prior to your discharge. You will be sent home with one additional dressing to be changed on post op day 7 by the home health RN. You may remove the dressing on post op day 14. Your incision was closed with dermabond, allow the dermabond to fall off naturally once your dressing is removed. Do not pull at the dermabond or disrupt incision healing. ? You may shower with your dressing but do not submerge in a bath tub. ? Do not drive or operate machinery until you are released by Dr. Vargas. ? Do not walk without a walker for any reason until you are released by Dr. Vargas. ? Continue to apply ice to the hip intermittently for additional pain relief. Protect your skin with a towel or pillow case. ? Unless otherwise instructed by Dr. Vargas you me be weight bearing as tolerated with your walker. ? Continue to follow strict total hip replacement precautions. ? Your first post op appointment was sent to you via mail preoperatively. If you have any questions or are unable to make your appointment, please contact our office for scheduling questions. ? Your medications have been sent to your pharmacy. You have been sent home with pain medication. We have also sent you with a stool softener as narcotics can cause constipation. Please keep this in mind during your postoperative recovery. If you are not experiencing regular bowel movements, please contact our office for further instruction. ? Please contact our office with any questions regarding your hip at [phone]. Stand Alone Forms: General Discharge Instructions Follow-up/Referrals: Carlo Vargas MD [Physician] - [address] Mike
== END 2022-12-27 16:45 | disposition home or self-care (01) ==
LOC: ANHSURGERY 06:45 → ANH3MED 14:30
PROVIDERS: PCP Family Medicine; Visit Provider Orthopaedic Surgery
PROC: (CPT 27130; principal; 2022-12-26 08:30)
DX: M16.11 Unilateral primary osteoarthritis, right hip (principal); I10 Essential (primary) hypertension; E78.5 Hyperlipidemia, unspecified; K21.9 Gastro-esophageal reflux disease without esophagitis; M47.812 Spondylosis without myelopathy or radiculopathy, cervical region; Z85.46 Personal history of malignant neoplasm of prostate; Z79.82 Long term (current) use of aspirin; E66.9 Obesity, unspecified; Z68.32 Body mass index [BMI] 32.0-32.9, adult
CPT/HCPCS: 27130; 36415; 73501; 78452; 80048; 80307; 81001; 82040; 82948; 83036; 85025; 85610; 85730; 86850; 86900; 86901; 87081; 93017; 97110; 97161; 97165; A9270; A9502; C1713; C1776; J0171; J0690; J1100; J1170; J1885; J2250; J2270; J2405; J2704; J2710; J2785; J2795; J3010; J7120

== ENCOUNTER 2023-01-16 08:19 | Outpatient (CLI) | payer MEDICARE, SELFPAY ==
--- NOTE | ~2023-01-16 | XR_ITS ---
AP view of the pelvis and AP and lateral views of the right hip Clinical history: Pain Findings: No acute fracture or dislocation is seen. Right hip arthroplasty is in place. There is mini mal degenerative change of the left hip joint. There is degenerative spondylosis of the lower lumbar spine. Soft tissues are unremarkable. Impression: Right hip arthroplasty in place. Mild degenerative changes, as above. Reviewed, dictated and finalized at location . [facility] Impression: Right hip arthroplasty in place. Mild degenerative changes, as above.
== END 2023-01-16 08:20 | disposition home or self-care (01) ==
LOC: CHSIMG 08:22
PROVIDERS: PCP Family Medicine; Visit Provider Orthopaedic Surgery
DX: M25.551 Pain in right hip (principal); Z96.641 Presence of right artificial hip joint
CPT/HCPCS: 73502

== ENCOUNTER 2023-01-22 08:30 | Outpatient (RCR) | payer MEDICARE, SELFPAY ==
--- NOTE | 2023-01-22 09:05 | PTOPEVAL1 ---
Assessment and note entered by Yoni Lyn Evaluation Information Assessment Status Evaluation Diagnosis right NILSON Onset 12/26/22 Subjective Information Pt. reports that he underwent hip replacement on 12/26/22. He states that he had been doing HH therapy and was discharged last week. He states that he still has described pain in the right thigh, especially after he exercises. He states that he is still using his walker. He reports that he does have a cane at home. He states that prior to surgery he was independent with all ADL's and IADL's. He states that he required no assistance with all at home activities and was driving. He reports that his goal is to return to walking normally and be able to do all home activities without assistance. Reported Pain Level Pain Score 3: Self Report Assessment PT Clinical Summary Pt. is a 77 year old male who enters the clinic s/ p right NILSON. He presents with impaired gait, impaired endurance, impaired l.e. strength and functional decline. Continued skilled PT is indicated in order to improve these areas to allow for pt. to return to all normal IADL's without limitation. Plan of Care Interventions Electrical Stimulation,Gait Training,Hot Pack/Cold Pack,Manual Therapy,Neuro Re-education,Patient/ Caregiver Educati,Therapeutic Activities, Therapeutic Exercise PT Services Indicated Yes Treatment Frequency and 2x/week x 10 visits Duration These treatments will address the objective and functional deficits as defined above. The patient will be advanced safely and appropriately in order for the patient to progress towards his/her prior level of function. Additional exercises will be introduced and as well as a comprehensive home exercise program upon discharge, if needed, ?to ensure carryover of functional gains achieved in the clinic. This treatment plan has been reviewed and agreement upon by the patient.
--- NOTE | 2023-01-22 09:05 | OPREHPOC ---
Outpatient Therapy Plan of Care This is a Multidisciplinary Plan of Care that may contain components documented by all disciplines (PT, OT, and ST.) PT Problem 1 PT Problem #1 Knowledge Deficit PT Goal 1 Goal Independent with a HEP addressing l.e. strength and mobility Target Visit 2 PT Problem 2 PT Problem #2 Impaired Gait PT Goal 1 Goal Pt. will ambulate independent over level surface without an AD with equal right and left stance time. Target Visit 10 PT Goal 2 Goal pt. will navigate 10 steps with reciprocal pattern with one hand on handrail Target Visit 10 PT Problem 3 PT Problem #3 Impaired Endurance PT Goal 1 Goal Pt. will complete the 6 mintue walk test for a distance of 1000' or greater without an AD. PT Problem 4 PT Problem #4 Impaired Functional Mobil PT Goal 1 Goal Pt. will return to driving.
--- NOTE | 2023-02-26 09:35 | PTOPEVAL1 ---
Assessment and note entered by Yoni [facility] Evaluation Information Assessment Status Progress Diagnosis right NILSON Onset 12/26/22 Subjective Information Pt. reports that he continues to notice himself limping slightly. He states that he has returned to driving and no longer using an AD. He states that he still has pain, but describes pain in the area of the low back. He states that he still has trouble lifting the right leg over the edge of the bathtub. He reports that while he is walking without his AD, he still notices himself limping. He reports that he would like to continue with PT in order to improve walking and be able to lift his leg over the shower threshold without assist. Reported Pain Level Pain Score 2: Self Report Assessment PT Clinical Summary Mr. Self attended a total of 10 treatment sessions. He has demonstrated improvements in strength, gait and endurance. Despite these improvements continue to note hip flexor weakness and impaired gait mechanics, making completion of all ADL's difficult. At this time pt. has met some goals, however some goals in regards to gait mechanics and strength continue to remain. Continued skilled PT is indicated in order to continue to improve hip flexion strength and improve gait mechanics for improved ADL and IADL efficiency. Plan of Care Interventions Gait Training,Neuro Re-education,Patient/Caregiver Educati,Therapeutic Activities,Therapeutic Exercise PT Services Indicated Yes Treatment Frequency and 2x/week x 6 visits Duration These treatments will address the objective and functional deficits as defined above. The patient will be advanced safely and appropriately in order for the patient to progress towards his/her prior level of function. Additional exercises will be introduced and as well as a comprehensive home exercise program upon discharge, if needed, ?to ensure carryover of functional gains achieved in the clinic. This treatment plan has been reviewed and agreement upon by the patient.
--- NOTE | 2023-02-26 09:38 | OPREHPOC ---
Outpatient Therapy Plan of Care This is a Multidisciplinary Plan of Care that may contain components documented by all disciplines (PT, OT, and ST.) PT Problem 1 PT Problem #1 Knowledge Deficit PT Goal 1 Goal Independent with a HEP addressing l.e. strength and mobility Target Visit 2 Progress Met PT Problem 2 PT Problem #2 Impaired Gait PT Goal 1 Goal Pt. will ambulate independent over level surface without an AD with equal right and left stance time. Target Visit 10 Progress Partially Met Comment Continue to note slight decrease in right stance time. PT Goal 2 Goal pt. will navigate 10 steps with reciprocal pattern with one hand on handrail Target Visit 10 PT Problem 3 PT Problem #3 Impaired Endurance PT Goal 1 Goal Pt. will complete the 6 mintue walk test for a distance of 1000' or greater without an AD. Progress Met PT Problem 4 PT Problem #4 Impaired Functional Mobil PT Goal 1 Goal Pt. will return to driving. Progress Met PT Problem 5 PT Problem #5 Impaired Strength PT Goal 1 Goal Pt. will demonstrate 5/5 right hip flexor strength to assist with improved foot clearance with getting into his shower/tub. Target Visit 16
--- NOTE | 2023-03-05 08:53 | PCPTNOTE ---
Mr. Self cancelled his PT appointment on this date due to inclement weather. Yoni Lyn, MPT
== END 2023-03-19 09:43 | disposition home or self-care (01) ==
LOC: CHSPT 08:30
PROVIDERS: Visit Provider Orthopaedic Surgery
DX: Z47.1 Aftercare following joint replacement surgery (principal); Z96.641 Presence of right artificial hip joint
CPT/HCPCS: 97110; 97112; 97161; 97530; 97750

== ENCOUNTER 2023-08-28 08:35 | Outpatient (CLI) | payer MEDICARE, SELFPAY ==
--- NOTE | ~2023-08-28 | XR_ITS ---
AP view of the pelvis and AP and lateral views of the right hip Clinical history: Pain Findings: No acute fracture or dislocation is seen. Right hip arthroplasty in place. No hardware comp lication evident. Soft tissues are unremarkable. Impression: No acute abnormality. Right hip arthroplasty in place. Reviewed, dictated and finalized at location . Impression: No acute abnormality. Right hip arthroplasty in place.
== END 2023-08-28 08:36 | disposition home or self-care (01) ==
LOC: CHSIMG 08:37
PROVIDERS: PCP Family Medicine; Visit Provider Orthopaedic Surgery
DX: M25.551 Pain in right hip (principal); Z96.641 Presence of right artificial hip joint
CPT/HCPCS: 73502

== ENCOUNTER 2023-09-06 10:42 | Outpatient (CLI) | payer MEDICARE, SELFPAY ==
--- NOTE | ~2023-09-06 | MR_ITS ---
Procedure: MR lumbar spine wo con Ordering provider: Carlo Vargas MD History: . M54.10 - Radiculopathy, site unspecified . Comparison: None. Technique: MRI thoracic spine without contrast. FINDINGS: SPINAL CORD: Normal. The cord ends at the level of L1. VERTEBRAL BODIES: Normal height and alignment. No compression fracture. Normal marrow signal. DISK SPACES: Endplate changes seen at the level of L1-L2. Narrowing of the disc is also noted. Narrow ing of the disc L3-L4, L4-L5 and L5-S1 is noted. T12-L1: No stenosis. L1-L2: Diffuse disc bulge. Narrowing of the right lateral recess and right intervertebral foramen wi th nerve root compression by osteophyte from the right facet joint. L2-L3: Moderate spinal canal stenosis. Diffuse disc bulge with bilateral facet joint disease. Thicken ing of the ligamenta flava. Bilateral slight narrowing of the foramina and root compression bilateral ly laterally. L3-L4: Severe spinal canal stenosis. Diffuse disc bulge with osteophytes. Bilateral facet joint disea se with thickening of the ligamenta flava. Bilateral facet joint disease. Bilateral narrowing of the foramina with root compression. L4-L5: No spinal canal stenosis. Diffuse disc bulge. Bilateral facet joint disease with thickening of the ligamenta flava bilateral narrowing of the foramina with root compression. L5-S1: No spinal canal stenosis. Diffuse disc bulge. Narrowing of the foramina more on the right side with nerve root compression more on the right side. PARASPINOUS SOFT TISSUES: Normal. IMPRESSION: No compression fracture. Multilevel degenerative disc disease with variable degrees of spinal canal stenosis and intervertebra l foraminal narrowing. Reviewed, dictated and finalized at location A. IMPRESSION: No compression fracture. Multilevel degenerative disc disease with variable degrees of spinal canal sten osis and intervertebral foraminal narrowing.
== END 2023-09-06 10:43 ==
LOC: MICIMG 10:43
PROVIDERS: PCP Orthopaedic Surgery; Visit Provider Orthopaedic Surgery
DX: M51.36 Other intervertebral disc degeneration, lumbar region (principal)
CPT/HCPCS: 72148

== ENCOUNTER 2023-11-22 09:31 | Outpatient (CLI) | payer MEDICARE, SELFPAY ==
[2023-11-22 14:44] LABS: Basophils Percent Auto 0.4 % (0.2-1.2); Eosinophils Absolute Auto 0.4 K/mm3 (0-0.3); Eosinophils Percent Auto 8.7 % (0-4.4); Hematocrit 40.9 % (42.0-52.0); Hemoglobin 13.5 g/dL (14.0-18.0); Immature Granulocyte Absolute 0.01 K/mm3 (0.00-0.031); Immature Granulocyte Percent A 0.2 % (0-0.5); Lymphocytes Absolute Auto 0.76 K/mm3 (0.9-3.2); Lymphocytes Percent Auto 16.9 % (18.3-44.2); Mean Corpuscular Hemoglobin 30.1 pg (26-34); Mean Corpuscular Volume 91.1 fl (80-100); Monocytes Absolute Auto 0.5 K/mm3 (0.1-0.6); Monocytes Percent Auto 10.7 % (2.6-8.5); Neutrophils Absolute Auto 2.8 K/mm3 (1.3-6.7); Neutrophils Percent Auto 63.1 % (45.5-73.1); Platelet Count Result 166 k/mm3 (150-375); Red Blood Count 4.49 M/mm3 (4.6-6.20); Red Cell Distribution Width 14.4 % (11.5-14.5); White Blood Count 4.5 K/mm3 (4.5-10.0)
[2023-11-22 15:44] LABS: Hemoglobin A1C 5.9 % (<5.7)
[2023-11-22 17:53] LABS: Alanine Aminotransferase 19 U/L (6-50); Albumin Level 4.2 g/dL (3.5-5.1); Alkaline Phosphatase 40 U/L (38-126); Anion Gap 7 mmol/L (4-12); Aspartate Amino Transferase 38 U/L (17-59); Bilirubin,Total 0.6 mg/dL (0.2-1.3); Blood Urea Nitrogen 21 mg/dL (9-20); Calcium 9.5 mg/dL (8.4-10.2); Carbon Dioxide 26 mmol/L (22-30); Chloride 105 mmol/L (98-107); Cholesterol 151 mg/dL (0-200); Estimated Glomerular Filt Rate > 60; Glucose 98 mg/dL (65-110); HDL Direct 51 mg/dL; Sodium 138 mmol/L (137-145); Triglycerides 96 mg/dL (<150)
[2023-11-22 18:03] LABS: LDL Cholesterol Direct 69 mg/dL
[2023-11-22 18:16] LABS: Prostate Specific Antigen < 0.1 ng/mL (< OR = 4.0)
[2023-11-22 19:46] LABS: Vitamin D 25 Hydroxy 35.4 ng/mL
== END 2023-11-22 09:32 | disposition home or self-care (01) ==
LOC: ANHGOSHLAB 09:32
PROVIDERS: PCP Family Medicine; Visit Provider Family Medicine
DX: E53.8 Deficiency of other specified B group vitamins (principal); I10 Essential (primary) hypertension; E55.9 Vitamin D deficiency, unspecified; D64.9 Anemia, unspecified; R73.03 Prediabetes; Z12.5 Encounter for screening for malignant neoplasm of prostate; E78.5 Hyperlipidemia, unspecified
CPT/HCPCS: 36415; 80053; 80061; 82306; 82607; 83036; 84153; 84443; 85025; G0103

== ENCOUNTER 2024-05-27 09:38 | Outpatient (CLI) | payer MEDICARE, SELFPAY ==
--- OUTSIDE RECORDS SUMMARY | 2024-05-27 10:16 | XMS_ITS | Encounter Summary ---
Author Organization [facility] Address [address] [place] [address] Care Team Providers Care Home Management Supervisor Name Role Phone Toan Tucker MD Primary Care Provider [phone]- [phone] Reason for Visit * Reason Onset Date Comments Question 05/26/2024 Encounter Details Date Type Department Care Team (Late st Contact Info) Description 05/26/2024 Telephone [facility] - ENT [address], [address] [place] [address] Miguel A Carmichael MD [address] [place] [address] Question Social History Tobacco Use Types Packs/Day Years Used Date Smoking Tobacco: Never Smokeless Tobacco: Never Alcohol Use Standard Drinks/Week Comments Yes 20 (1 standard drink = 0.6 oz pu re alcohol) AUDIT-C Answer Date Recorded Q1: How often do you have a drink containing alc ohol? 2-3 times a week 01/16/2024 Average Number of Drinks Not on file 024 Frequency of Binge Drinking Not on file 05/2023 Sex and Gender Information Value Date Recorded Sex Assigned at Not on file Legal Sex Male 5:21 PM SUSTAINABILITY DIRECTOR Gender Identity Not on file Sexual Orientation Not on file documented as of this encounter Miscellaneous Notes * Telephone Encounter - Ruth Ann Cortez RN - 05/26/2024 1:31 PM CDT Patient called saying he has had left ear ringing since around . He says the ringing occurs at night after he takes his hearing aid out before bed and the buzzing goes from a higher pitch to alower pitch through the night, with the buzzing subsiding in the AM when he puts the hearing aid back in. States he is having no other hearing issues with the hearing aid and denies any pain. documented in this encounter Plan of Treatment Upcoming Encounters Date Type Department Care Team (Late st Contact Info) Description 08/20/2024 8:30 AM CDT Office Visit [facility] - ENT [address] [place] [phone] Josi Cutler AuD [address] [place] [address] [address] [place] [address] 09/29/2024 8:00 AM CDT Office Visit [facility] - ENT [address] [place] [phone] Miguel A Carmichael MD [address] [place] [address] [place] [address] documented as of this encounter Visit Diagnoses Not on filedocumented in this encounter Care Teams Home Management Supervisor Relationship Specialty Start Date End Date Toan Tucker MD [address] [place] [address] PCP - General 12/12/16 documented as of this encounter
--- OUTSIDE RECORDS SUMMARY | 2024-05-27 10:16 | XMS_ITS | Clinical Summary ---
Author Organization [facility] Address [address] [place] [address] Care Team Providers Care Fuel Quality Tech Name Role Phone Toan Tucker MD Primary Care Provider [phone]- [phone] Source Comments [facility],non-owned Affiliates and Associated Physician Practices is amultiple site organization consisting of ambulatory clinics and hospital sitesin [place], [place], [place] and [place]. This disclosure is being madepursuant to the Care Everywhere program and may not contain all information available regarding this patient. Last updated 17.[employer] [facility] Allergies No known active allergies Medications * Be aware that medications may not be up to date on this document. Alwaysverify current medications with the patient. simvastatin (ZOCOR) 40 MG tablet Take 1 (one) tablet by mouth once daily 5 6 Active fenofibrate (TRICOR) 145 MG tablet Take 1 (one) tablet by mouth once daily 1 8 Active metoprolol succinate XL 24hr (TOPROL XL) 50 MG tablet Take 1 (one) tablet by mouth once daily 1 9 Active sildenafil (VIAGRA) 100 MG tablet Take 1 (one) tablet by mouth once daily as needed Active ASPIRIN 81 PO Take 1 tablet by mouth once daily Active clonazePAM (KLONOPIN) 1 MG tablet Take 1 (one) tablet by mouth at bedtime 9 Active losartan (COZAAR) 100 MG tablet Take 1 (one) tablet by mouth once daily 0 Active RABEPRAZOLE SODIUM PO Take 20 mg by mouth as needed Active omeprazole (PRILOSEC) 20 MG capsule Take 1 (one) capsule by mouth once daily 1 Active isosorbide mononitrate CR 24hr (IMDUR) 30 MG tablet Take 1 (one) tablet by mouth every morning 1 Active diazePAM (Valium) 5 MG tablet Take 1 (one) tablet by mouth 3 times daily as needed 3 Active CALCIUM PO Take 1,000 mg by mouth as directed Active vitamin D3 (Cholecalcifero l) 25 MCG (1000 UNITS) tablet Take 1 (one) tablet by mouth once daily Active docusate sodium (Colace) 100 MG capsule Take 1 (one) capsule by mouth 2 times daily as needed for Constipation 30 capsule 01/16/2024 2:08 PM STITCH BURNISHER 4 Active predniSONE (Deltasone) 10 MG tablet Take 6 (six) tablets by mouth once daily for 4 days, THEN 4 (four) tablets once daily for 4 days, THEN 3 (three) tablets once daily for 4 days, THEN 2 (two) tablets once daily for 4 days, THEN 1 (one) tablet once daily for 4 days. 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 02/22/2018 Nocturnal leg movements 02/22/2018 Central sleep apnea 02/13/2018 Hypertension 02/13/2018 Dyslipidemia 01/08/2018 Essential hypertension 01/08/2018 Cervical spondylosis without myelopathy 01/08/20 18 Spondylosis of cervical mahnaz on without myelopathy or radiculopathy 01/07/2018 Bilateral carpal tunnel syndrome 12/20/2017 Paresthesia of both hands 12/05/2017 ROLDAN (obstructive sleep apnea) 10/09/2017 Hypersomnia 07/10/2017 Chest pain at rest 06/12/2017 Shortness of breath 06/06/2017 Sensorineural hearing loss of both ears 12/13/19 17 Encounters Date Type Department Care Team Description 05/26/2024 Telephone [facility] - ENT [address] , [address] [phone] Miguel A Carmichael MD Question 05/20/2024 8:00 AM CDT 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; SNHL (sensory-neural hearing loss), asymmetrical 03/31/2024 Travel 03/17/2024 1:00 PM STITCH BURNISHER Office Visit [facility] - ENT [address] [place] [phone] Lowe, Josi, AuD Sensorineural hearing loss (SNHL) of both ears (Primary Dx) 03/17/2024 Travel 03/03/2024 12:30 PM STITCH BURNISHER Office Visit [facility] - ENT [address] [place] [phone] Lowe, Josi, AuD Sensorineural hearing loss (SNHL) of both ears (Primary Dx) 03/03/2024 Travel from Last 3 Months Immunizations Immunization Administration Dates Next Due INFLUENZA VACCINE, ADJUVANTE D, QUADR. (FLUAD QUADRIVALENT; 65Y+) (AIIV4) 11/03/2021 INFLUENZA VACCINE, ADJUVANTE D, TRIV. (FLUAD TRIVALENT; 65Y+) (AIIV3) 02/15/2018 INFLUENZA VACCINE, HIGH-DOSE , QUADR. (FLUZONE HIGH-DOSE QUADRIVALENT; 65Y+), 0.7 ML (HD-IIV4) 11/06/2022,11/08/2020,09/30/2019,2018 INFLUENZA VACCINE, HIGH-DOSE , TRIV. (FLUZONE HIGH-DOSE TRIVALENT; 65Y+) (HD-IIV3) 12/03/2018 INFLUENZA VACCINE, QUADR. (F LUZONE; FLULAVAL; FLUARIX; AFLURIA QUADRIVALENT; 6MO+), 0.5 ML (IIV4) 01/11/2017,11/13/2014 PNEUMOCOCCAL PPSV23 04/22/2019 Pneumococcal Pcv13 Conj 02/15/2018 RSV AREXVY 60YR+ 0.5ML 11/06/2022 ZOSTER VACCINE, LIVE 03/20/2013 Zoster Hzv Vacc Recombinant Inj Im 08/05/2019, Family History Medical History Relation Name Comments Cancer Brother Diabetes Brother CVA Father Relation Name Status Comments Brother Father Social History Tobacco Use Types Packs/Day Years Used Date Smoking Tobacco: Never Smokeless Tobacco: Never Tobacco Cessation:Counseling Given: Not Answered Alcohol Use Standard Drinks/Week Comments Yes 20 [...] on file Legal Sex Male 5:21 PM STITCH BURNISHER Gender Identity Not on file Sexual Orientation Not on file Last Filed Vital Signs Vital Sign Reading Time Taken Comments Blood Pressure 129/79 03/31/2024 8:33 AM STITCH BURNISHER Pulse 62 03/31/2024 8:33 AM STITCH BURNISHER Temperature 37.2 C (98.9 F) 01/16/2024 5:04 PM STITCH BURNISHER Respiratory Rate 17 01/16/2024 4:50 PM STITCH BURNISHER Oxygen Saturation 97% 01/16/2024 5:45 PM STITCH BURNISHER Inhaled Oxygen Concentration - - Weight 109.3 kg (241 lb) 03/31/2024 8:33 AM STITCH BURNISHER Height 172.7 cm (5' 8 ) 03/31/2024 8:33 AM STITCH BURNISHER Body Mass Index 36.64 03/31/2024 8:33 AM STITCH BURNISHER Plan of Treatment Upcoming Encounters Date Type Department Care Team (Late st Contact Info) Description 08/20/2024 8:30 AM CDT Office Visit [facility] [address], [place] [phone] Josi Cutler Franki [address] [facility] [address] [place] [address] 09/29/2024 8:00 AM CDT Office Visit [facility] [address] [place] [phone] Miguel A Carmichael MD [address] [place] [address] Health Maintenance Due Date Last Done Comments HEPATITIS C SCREENING 09/19/1965 DTAP/TDAP/TD VACCINES (1 - Tdap) 09/23/1966 COVID-19 VACCINE ( season) 2023 11/06/2022, 06/22/2022, 11/03/2021, Additional history exists DEPRESSION SCREENING 02/13/2024 MEDICARE AWV CALENDAR YEAR 2024 INFLUENZA VACCINE (Season Ended) 2024 11/06/2022, 11/03/2021, 11/08/2020, Additional history exists PNEUMOCOCCAL VACCINE 50+ Completed 04/22/2019, 05/2018 ZOSTER VACCINE Completed 08/05/2019, 02/2019, 03/20/2013 Respiratory Syncytial Virus (RSV) Vaccine Pt: or over 60 yrs Completed 11/06/2022 HEPATITIS B VACCINE Aged Out No longe r eligible based on patient's age to complete this topic HIB VACCINE Aged Out No longer eligi ble based on patient's age to complete this topic HPV VACCINE Aged Out No longer eligi ble based on patient's age to complete this topic MENINGOCOCCAL (Group B) VACCINE SHARED DECISION-MAKING Aged Out No longer eligible based on patient's age to complete this topic MENINGOCOCCAL GROUPS A/C/Y/W VACCINE Aged Out No longer eligible based on patient's age to complete this topic Medical Devices Implanted Type Area Portal Developer Device Identifier Shelf Expiration Date Model / Serial / Lot Impl Demetria Pires J - [id number] Implanted:Qty: 1 on 01/16/2024 by Miguel A Carmichael MD at [facility] Cochlear Implant Left: Ear [employer] Lina 12/12/2026 CI-1601-0 5 / [id number] / Procedures Procedure Name Priority Date/Time Associated Diagnosis Comments AUDIOLOGY/TYMPANOMETRY ORDER Routine 05/20/2024 11:24 AM CDT AUDIOLOGY/TYMPANOMETRY ORDER Routine 03/17/2024 2:20 PM STITCH BURNISHER AUDIOLOGY/TYMPANOMETRY ORDER Routine 03/03/2024 3:23 PM STITCH BURNISHER from Last 3 Months Results * AUDIOLOGY/TYMPANOMETRY ORDER (05/20/2024 11:24 AM CDT) [facility] AUDIOLOGY SERVICES ORDERABLES F inal Result * AUDIOLOGY/TYMPANOMETRY ORDER (03/17/2024 2:20 PM STITCH BURNISHER) [facility] AUDIOLOGY SERVICES ORDERABLES F inal Result * AUDIOLOGY/TYMPANOMETRY ORDER (03/03/2024 3:23 PM STITCH BURNISHER) [facility] ORDERABLES F inal Result from Last 3 Months Insurance [facility] MANAGED MEDICARE ADV [place] [id number] [facility] MANAGED MEDICARE ADV Care Teams Fuel Quality Tech Relationship Specialty Start Date End Date Toan Tucker MD [address] [place] [address] PCP - General 12/12/16
[2024-05-27 11:27] LABS: Hemoglobin A1C 6.1 % (<5.7)
[2024-05-27 11:32] LABS: Alanine Aminotransferase 24 U/L (6-50); Albumin Level 3.9 g/dL (3.5-5.1); Alkaline Phosphatase 38 U/L (38-126); Anion Gap 9 mmol/L (4-12); Aspartate Amino Transferase 32 U/L (17-59); Bilirubin,Total 0.5 mg/dL (0.2-1.3); Blood Urea Nitrogen 23 mg/dL (9-20); Calcium 9.6 mg/dL (8.4-10.2); Carbon Dioxide 25 mmol/L (22-30); Chloride 108 mmol/L (98-107); Estimated Glomerular Filt Rate > 60; Glucose 115 mg/dL (65-110); Potassium 4.6 mmol/L (3.4-5.0); Sodium 142 mmol/L (137-145)
== END 2024-05-27 09:39 | disposition home or self-care (01) ==
LOC: ANHGOSHLAB 09:39
PROVIDERS: PCP Family Medicine; Visit Provider Family Medicine
DX: R73.03 Prediabetes (principal); I10 Essential (primary) hypertension
CPT/HCPCS: 36415; 80053; 83036

== ENCOUNTER 2024-07-02 06:49 | Outpatient (CLI) | payer MEDICARE, SELFPAY ==
--- NOTE | ~2024-07-02 | MR_ITS ---
MRI of the lumbar spine Clinical History: Spinal stenosis Technique: Axial T2-weighted images, and sagittal T1-weighted, T2-weighted, and and T2 fat-sat images were acquired. Findings: There is no fracture or subluxation lumbar spine. Osseous alignment is similar to prior exa m. No suspicious bone marrow signal reality seen. At L1-L2, there is severe degenerative disc narrowing. There is disc bulge and severe facet arthropat hy, right worse than left. There is right lateral recess stenosis. No central canal stenosis. There i s severe right neural foraminal narrowing and advanced left neural foraminal narrowing. At L2-L3, there is moderate degenerative disc narrowing. Disc bulge and severe facet arthropathy resu lt in moderate to severe spinal canal stenosis/thecal sac compression. There is advanced bilateral ne ural foraminal narrowing. At L3-L4, there is severe degenerative disc narrowing. Disc bulge and severe facet arthropathy result in severe spinal canal stenosis/thecal sac compression. There is severe bilateral neural foraminal n arrowing, left worse than right. At L4-L5, there is advanced degenerative disc narrowing. Disc bulge and severe facet arthropathy are present, with severe spinal canal stenosis/thecal sac compression. There is severe bilateral neural f oraminal, otherwise. At L5-S1, there is advanced degenerative disc narrowing. There is diffuse disc bulge with severe face t arthropathy. No central canal stenosis. There is severe right neural foraminal narrowing and modera te to severe left neural foraminal narrowing. Paravertebral soft tissues are unremarkable. Impression: Severe multilevel degenerative spondylosis throughout the lumbar spine, as detailed above. There is m ultilevel canal stenosis/thecal sac compression and severe bilateral neural foraminal narrowing. Reviewed, dictated and finalized at location M. Impression: Severe multilevel degenerative spondylosis throughout the lumbar spine, as deta iled above. There is multilevel canal stenosis/thecal sac compression and sever e bilateral neural foraminal narrowing.
== END 2024-07-02 06:50 | disposition home or self-care (01) ==
LOC: MICIMG 06:50
PROVIDERS: PCP Family Medicine; Visit Provider Nurse Practitioner Family
DX: M48.061 Spinal stenosis, lumbar region without neurogenic claudication (principal); M47.896 Other spondylosis, lumbar region
CPT/HCPCS: 72148

== ENCOUNTER 2024-07-16 09:18 | Outpatient (CLI) | payer MEDICARE, SELFPAY ==
--- NOTE | 2024-07-16 | ECG_ITS ---
Test Date: 2024-07-16 09:55:18 Measurements Intervals Post Rate: 65 P: 25 VA: 177 QRS: -28 QRSD: 120 T: 1 QT: 414 QTc: 431 Interpretive Statements SINUS RHYTHM WITH SINUS ARRHYTHMIA INTRAVENTRICULAR CONDUCTION DELAY DELAYED PRECORDIAL R/S TRANSITION BORDERLINE T WAVE ABNORMALITY- INFERIOR LEADS BASELINE ARTIFACT- III, V4, V6 BORDERLINE ECG No previous ECG available for comparison Electronically Signed On 07-16-2024 11:37:26 CDT by Gabino Juarez D.O.
--- OUTSIDE RECORDS SUMMARY | 2024-07-16 09:25 | XMS_ITS | Clinical Summary ---
Author Organization [facility] Address [address] [place] [address] Care Team Providers Care Insulation Sprayer Name Role Phone Toan Tucker MD Primary Care Provider +1- [phone] Source Comments [facility],non-owned Affiliates and Associated Physician Practices is amultiple site organization consisting of ambulatory clinics and hospital sitesin [place], [place], [place] and [place]. This disclosure is being madepursuant to the Care Everywhere program and may not contain all information available regarding this patient. Last updated 17.[employer] [facility] Allergies No known active allergies Medications * [...] for Constipation 30 capsule 01/16/2024 2:08 PM REEL WORKER 4 Active Active Problems Problem Noted Date Diagnosed Date [...] Type Department Care Team Description 05/26/2024 Telephone [facility] [address], [facility] [address] [place] [phone] Miguel A Carmichael MD Question 05/20/2024 8:00 AM CDT Office Visit [facility] [address] [place] [phone] Josi Cutler AuD Sensorineural hearing loss (SNHL) of both ears (Primary Dx) 05/20/2024 Travel 05/01/2024 Telephone [facility] [address] [place] [phone] Miguel A Carmichael MD Ear Problem from Last 3 Months Immunizations Immunization Administration [...] on file Legal Sex Male 5:21 PM REEL WORKER Gender Identity Not on file Sexual Orientation Not on file Last Filed Vital Signs Vital Sign Reading Time Taken Comments Blood Pressure 129/79 03/31/2024 8:33 AM REEL WORKER Pulse 62 03/31/2024 8:33 AM REEL WORKER Temperature 37.2 C (98.9 F) 01/16/2024 5:04 PM REEL WORKER Respiratory Rate 17 01/16/2024 4:50 PM REEL WORKER Oxygen Saturation 97% 01/16/2024 5:45 PM REEL WORKER Inhaled Oxygen Concentration - - Weight 109.3 kg (241 lb) 03/31/2024 8:33 AM REEL WORKER Height 172.7 cm (5' 8) 03/31/2024 8:33 AM REEL WORKER Body Mass Index 36.64 03/31/2024 8:33 AM REEL WORKER Plan of Treatment Upcoming Encounters Date Type Department Care Team (Late st Contact Info) Description 08/20/2024 8:30 AM CDT Office Visit [facility] [address] [place] [phone] Josi Cutler AuD [address] [place] [address] [address] [place] [address] 09/29/2024 8:00 AM CDT Office Visit [facility] [address] [place] [phone] Miguel A Carmichael MD [address] [place] [address] [place] [address] Health Maintenance Due Date Last Done Comments [...] this topic Medical Devices Implanted Type Area Trailer Truck Driver Device Identifier Shelf Expiration Date Model / Serial / Lot Impl Coclr Joy Pires J - [id number] Implanted:Qty: 1 on 01/16/2024 by Miguel A Carmichael MD at [facility] Cochlear Implant Left: Ear [employer] Lina 12/12/2026 CI-1601-0 5 / [id number] / Procedures Procedure Name Priority Date/Time Associated Diagnosis Comments AUDIOLOGY/TYMPANOMETRY ORDER Routine 05/20/2024 11:24 AM CDT from Last 3 Months Results * AUDIOLOGY/TYMPANOMETRY ORDER (05/20/2024 11:24 AM CDT) Josi Cutler [facility] AUDIOLOGY SERVICES ORDERABLES F inal Result from Last 3 Months Insurance [facility] MANAGED MEDICARE ADV [facility] MANAGED MEDICARE ADV Care Teams Insulation Sprayer Relationship Specialty Start Date End Date Toan Tucker MD [address] [place], [place] [phone] PCP - General 12/12/16
[2024-07-16 09:59] LABS: Basophils Percent Auto 0.5 % (0.2-1.2); Eosinophils Absolute Auto 0.4 K/mm3 (0-0.3); Eosinophils Percent Auto 8.6 % (0-4.4); Hematocrit 40.3 % (42.0-52.0); Hemoglobin 13.1 g/dL (14.0-18.0); Immature Granulocyte Absolute 0.01 K/mm3 (0.00-0.031); Immature Granulocyte Percent A 0.2 % (0-0.5); Lymphocytes Absolute Auto 0.88 K/mm3 (0.9-3.2); Lymphocytes Percent Auto 20.5 % (18.3-44.2); Mean Corpuscular HGB Conc 32.5 g/dl (32-36); Mean Corpuscular Hemoglobin 29.1 pg (26-34); Mean Corpuscular Volume 89.6 fl (80-100); Mean Platelet Volume 10.8 fl (7.4-10.4); Monocytes Absolute Auto 0.5 K/mm3 (0.1-0.6); Monocytes Percent Auto 11.7 % (2.6-8.5); Neutrophils Absolute Auto 2.5 K/mm3 (1.3-6.7); Neutrophils Percent Auto 58.5 % (45.5-73.1); Platelet Count Result 184 k/mm3 (150-375); Red Cell Distribution Width 14.2 % (11.5-14.5); White Blood Count 4.3 K/mm3 (4.5-10.0)
[2024-07-16 10:12] LABS: Alanine Aminotransferase 22 U/L (6-50); Albumin Level 4.2 g/dL (3.5-5.1); Alkaline Phosphatase 40 U/L (38-126); Anion Gap 5 mmol/L (4-12); Aspartate Amino Transferase 33 U/L (17-59); Bilirubin,Total 0.7 mg/dL (0.2-1.3); Blood Urea Nitrogen 21 mg/dL (9-20); CRP < 0.5 mg/dL (<1.0); Calcium 9.8 mg/dL (8.4-10.2); Carbon Dioxide 25 mmol/L (22-30); Chloride 109 mmol/L (98-107); Estimated Glomerular Filt Rate > 60; Glucose 111 mg/dL (65-110); Potassium 4.2 mmol/L (3.4-5.0); Sodium 139 mmol/L (137-145); Total Protein 7.1 g/dL (6.3-8.2)
[2024-07-16 10:40] LABS: Add Urine Microscopic? YES; Appearance Urine Clear (Clear); Bacteria Urine None Seen /hpf; Bilirubin Urine Negative (Negative); Blood Urine Trace (Negative); Color Urine Yellow (Yellow); Glucose Urine UA Negative (Negative); Ketones Urine Negative (Negative); Leukocyte Esterase Ur Negative LEU/UL (Negative); Nitrate Urine Negative (Negative); Non Pathogenic Casts 0-2; Protein Urine Negative (Negative); Specific Grav Ur 1.022 (1.001-1.035); Squamous Epithelial Cell Urine None Seen /hpf (Few); Urobilinogen Urine 0.2 mg/dL (<2.0); WBC Urine 0-5 /hpf (0-3); pH Urine 5.5 (5.0-9.0)
[2024-07-16 10:41] LABS: Erythrocyte Sedimentation Rate 16 mm/hr (0-20)
== END 2024-07-16 09:19 | disposition home or self-care (01) ==
PROVIDERS: PCP Family Medicine; Visit Provider Nurse Practitioner Family
DX: Z01.818 Encounter for other preprocedural examination (principal); Z79.899 Other long term (current) drug therapy
CPT/HCPCS: 36415; 80053; 81001; 85025; 85652; 86140; 93005

== ENCOUNTER 2024-11-07 08:23 | Outpatient (CLI) | payer MEDICARE, SELFPAY ==
--- OUTSIDE RECORDS SUMMARY | 2024-11-07 08:28 | XMS_ITS | Clinical Summary ---
Author Organization [facility] Address [address] [address] Care Team Providers Care Associate Research Scientist Name Role Phone Toan Tucker MD Primary Care Provider [phone] Source Comments [facility],non-owned Affiliates and Associated Physician Practices is amultiple site organization consisting of ambulatory clinics and hospital sitesin [place], [place], [place] and [place]. This disclosure is being madepursuant to the Care Everywhere program and may not contain all information available regarding this patient. Last updated 17.[facility] Allergies No known active allergies Medications * [...] for Constipation 30 capsule 01/16/2024 2:08 PM DIRECTOR SPECIAL EDUCATION 4 Active cyanocobalamin (Vitamin B-12) 1000 MCG tablet Take 1 (one) tablet by mouth once daily Active gabapentin (Neurontin) 300 MG capsule Take 1 (one) capsule by mouth as directed 5 Active indapamide (Lozol) 2.5 MG tablet Take 1 (one) tablet by mouth once daily Active Active Problems Problem Noted Date Diagnosed [...] Encounters Date Type Department Care Team Description 09/29/2024 8:00 AM CDT Office Visit [facility] - ENT [facility] [place] [address] Miguel A Carmichael MD Sensorineural hearing loss (SNHL) of both ears (Primary Dx); 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 (AF LURIA, FLUZONE TRIVALENT; 6MO+) (IIV3) 02/14/2018 COVID PFIZER 12+YR 30MCG/0.3mL 12/14/2023,2022 COVID PFIZER BIVALENT 12Y+ 30mcg/0.3ML 06/22/2022,11/03/2021 Covid Pfizer primary Monoval ent 12+ yr 0.3ml 05/25/2021 Covid Pfizer primary monoval ent 12+ yr 0.3mL Purple cap 11/08/2020,04/23/2020,04/02/2020 INFLUENZA VACCINE, ADJUVANTE D, QUADR. (FLUAD QUADRIVALENT; 65Y+) (AIIV4) 11/03/2021 INFLUENZA VACCINE, ADJUVANTE D, TRIV. (FLUAD TRIVALENT; 65Y+) (AIIV3) 02/15/2018 INFLUENZA VACCINE, HIGH-DOSE , QUADR. (FLUZONE HIGH-DOSE QUADRIVALENT; 65Y+), 0.7 ML (HD-IIV4) 11/06/2022,11/08/2020,09/30/2019,2018 INFLUENZA VACCINE, HIGH-DOSE , TRIV. (FLUZONE HIGH-DOSE TRIVALENT; 65Y+) (HD-IIV3) 12/14/2023,12/03/2018 INFLUENZA VACCINE, QUADR. (F LUZONE; FLULAVAL; FLUARIX; AFLURIA QUADRIVALENT; 6MO+), 0.5 ML (IIV4) 01/11/2017,11/13/2014 PNEUMOCOCCAL PPSV23 04/22/2019,02/14/2018 Pneumococcal Pcv13 Conj 02/15/2018 RSV AREXVY 60YR+ [...] on file Legal Sex Male 5:21 PM DIRECTOR SPECIAL EDUCATION Gender Identity Not on file Sexual Orientation Not on file Last Filed Vital Signs Vital Sign Reading Time Taken Comments Blood Pressure 118/74 09/29/2024 7:55 AM CDT Pulse 66 09/29/2024 7:55 AM CDT Temperature 37.2 C (98.9 F) 01/16/2024 5:04 PM DIRECTOR SPECIAL EDUCATION Respiratory Rate 17 01/16/2024 4:50 PM DIRECTOR SPECIAL EDUCATION Oxygen Saturation 97% 01/16/2024 5:45 PM DIRECTOR SPECIAL EDUCATION Inhaled Oxygen Concentration - - Weight 107.2 kg (236 lb 6.4 oz) 09/29/2024 7:55 AM CDT Height 172.7 cm (5' 8) 09/29/2024 7:55 AM CDT Body Mass Index 35.94 09/29/2024 7:55 AM CDT Plan of Treatment Upcoming Encounters Date Type Department Care Team (Late st Contact Info) Description 02/18/2025 8:30 AM DIRECTOR SPECIAL EDUCATION Office Visit [facility] - ENT [address] [place] [address], [place] [phone] Josi Cutler AuD [address] [facility] [address] [place] [address] 03/30/2025 8:00 AM DIRECTOR SPECIAL EDUCATION Office Visit [facility] - [facility]NT [address] [place] [phone] Miguel A Carmichael MD [address] [place] [address] [place] [address] Health Maintenance Due Date Last Done Comments HEPATITIS C SCREENING 09/19/1965 DTAP/TDAP/TD VACCINES (1 - Tdap) 09/23/1966 DEPRESSION SCREENING 02/13/2024 MEDICARE AWV CALENDAR YEAR 2024 COVID-19 VACCINE ( season) 2024 12/14/2023, 11/06/2022, 06/22/2022, Additional history exists INFLUENZA VACCINE (#1) 2024 , 11/06/2022, 11/03/2021, Additional history exists PNEUMOCOCCAL VACCINE 50+ Completed 020, 02/15/2018, 02/14/2018 ZOSTER VACCINE Completed 08/05/2019, 0302/2019, 03/20/2013 Respiratory Syncytial Virus (RSV) Vaccine Pt: [...] this topic Medical Devices Implanted Type Area Isotope Hydrologist Device Identifier Shelf Expiration Date Model / Serial / Lot Impl [facility] J - [id number] Implanted:Qty: 1 on 01/16/2024 by Miguel A Carmichael MD at [facility] Cochlear Implant Left: Ear [employer] Lina 12/12/2026 CI-1601-0 5 / [id number] / Procedures Procedure Name Priority Date/Time Associated Diagnosis Comments AUDIOLOGY/TYMPANOMETRY ORDER Routine 08/20/2024 11:08 AM CDT from Last 3 Months Results * AUDIOLOGY/TYMPANOMETRY ORDER (08/20/2024 11:08 AM CDT) Josi Cutler AuD AUDIOLOGY SERVICES ORDERABLES F inal Result from Last 3 Months Insurance [facility] MANAGED MEDICARE ADV [facility] MANAGED MEDICARE ADV Care Teams Associate Research Scientist Relationship Specialty Start Date End Date Toan Tucker MD [address] [place] [address] PCP - General 12/12/16
--- NOTE | 2024-11-07 08:53 | ECHO_ITS ---
Patient Info Name: Armin Self Age: 79 years : 1945 Gender: Male Ht: 68 in Wt: 230 lbs BSA: 2.28 m2 HR: 54 bpm BP: 149 / 93 mmHg Technical Quality: Good Exam Date: 11/07/2024 9:03 AM Patient Status: O Admit Date: 11/07/2024 Exam Type: CA echo doppler color flow Complete two-dimensional, color flow and Doppler transthoracic echocardiogram is performed. Director Of Front Office: Sherita Stratton Attending Provider: Gabino Juarez DO Summary 1. Complete two-dimensional, color flow and Doppler transthoracic echocardiogram is performed. 2. Left ventricular chamber dimension is normal. 3. Left ventricular systolic function is normal, estimated at 60-65. 4. There is mild concentric increased left ventricular wall thickness. 5. The left ventricular diastolic function is grade I diastolic dysfunction. 6. E/e' 9 is minimally elevated. 7. Left atrial chamber dimension is mildly enlarged. 8. There is severe aortic valve sclerosis. 9. There is mild to moderate aortic valve stenosis with a peak velocity of 267 cm/s, mean gradient of 17 mmHg, and aortic valve area of 1.7 cm2. 10. There is trace aortic valve regurgitation. 11. The mitral valve has a mildly calcified annulus. 12. There is trace mitral valve regurgitation. 13. There is mild tricuspid valve regurgitation. 14. No pulmonary hypertension, estimated pulmonary arterial systolic pressure is 39 mmHg. 15. There is trace pulmonic regurgitation. Left Ventricle E/e' 9 is minimally elevated. Left ventricular chamber dimension is normal. Left ventricular systolic function is normal, estimated at 60-65. There is mild concentric increased left ventricular wall thickness. The left ventricular diastolic function is grade I diastolic dysfunction. Right Ventricle Right ventricular chamber dimension is normal. Right ventricular systolic function is normal and with normal TAPSE 1.8 cm. Left Atria Left atrial chamber dimension is mildly enlarged. Right Atria Right atrial chamber dimension is normal. Aortic Valve The aortic valve is trileaflet. There is severe aortic valve sclerosis. There is mild to moderate aortic valve stenosis with a peak velocity of 267 cm/s, mean gradient of 17 mmHg, and aortic valve area of 1.7 cm2. There is trace aortic valve regurgitation. Pulmonic Valve There is trace pulmonic regurgitation. Mitral Valve The mitral valve has a mildly calcified annulus. There is no mitral valve stenosis. There is trace mitral valve regurgitation. Tricuspid Valve There is mild tricuspid valve regurgitation. No pulmonary hypertension, estimated pulmonary arterial systolic pressure is 39 mmHg. Pericardium/Pleural There is no pericardial effusion. Inferior Vena Cava Normal inferior vena cava with >50% collapse upon inspiration consistent with normal right atrial pressure, 5 mmHg. Aorta The aortic root size at the sinus of Valsalva is normal. Left Ventricular Outflow Tract Name Value Normal LVOT 2D LVOT Diameter 2.0 cm LVOT Doppler LVOT Peak Velocity 94 cm/s LVOT Peak Gradient 3 mmHg LVOT Mean Gradient 2 mmHg LVOT VTI 35 cm LVOT VTI/AV VTI Ratio 0.5 LVOT Stroke Volume 110 ml LVOT CO 10.1 l/min LVOT CI 4.4 l/min/m2 Pulmonic Valve Name Value Normal RVOT Doppler RVOT Peak Velocity 71 cm/s RVOT Peak Gradient 2 mmHg PV Doppler PV Peak Velocity 124 cm/s PV Peak Gradient 6 mmHg Mitral Valve Name Value Normal MV Diastolic Function MV E Peak Velocity 49 cm/s MV A Peak Velocity 78 cm/s MV E/A 0.6 MV Decel Time (PW) 352 ms MV Annular TDI MV E/e' (Septal) 14.5 MV E/e' (Lateral) 6.9 MV E/e' (Average) 10.7 Tricuspid Valve Name Value Normal TV Regurgitation Doppler TR Peak Velocity 290 cm/s TR Peak Gradient 34 mmHg Estimated PAP/RSVP RA Pressure 5 mmHg <=5 PA Systolic Pressure 39 mmHg <36 RV Systolic Pressure 39 mmHg <36 Aortic Valve Name Value Normal AV Doppler AV Peak Velocity 267 cm/s AV Peak Gradient 27 mmHg AV Mean Gradient 17 mmHg AV VTI 64 cm AV Area (Cont Eq VTI) 1.7 cm2 >=3.0 AV Area (Cont Eq Adeel) 1.1 cm2 AV DI (Adeel) 0.35 AV Regurgitation 2D LVOT Area 3.2 cm2 Ventricles Name Value Normal LV Dimensions 2D/MM IVS Diastolic Thickness (2D) 1.2 cm 0.6-1.0 LVID Diastole (2D) 5.0 cm 4.2-5.8 LVIW Diastolic Thickness (2D) 1.2 cm 0.6-1.0 LVID Systole (2D) 3.7 cm 2.5-4.0 LVOT Diameter 2.0 cm LV Mass (2D Cubed) 242.82 g 88.00-224.00 LV Mass Index (2D Cubed) 107 g/m2 49-115 Relative Wall Thickness (2D) 0.50 <=0.42 LV Fractional Shortening/Ejection Fraction 2D/MM LV Fractional Shortening (2D) 27 % 25-43 LV EF (2D Teichholz) 52 % LV Diastolic Volume (4C MOD) 132 ml LV EF (4C MOD) 56 % LV Diastolic Volume (2C MOD) 123 ml LV EF (2C MOD) 57 % LV Diastolic Volume (BP MOD) 128 ml 62-150 LV Diastolic Volume Index (BP MOD) 56 ml/m2 34-74 LV Systolic Volume (BP MOD) 55 ml 21-61 LV Systolic Volume Index (BP MOD) 24 ml/m2 11-31 LV EF (BP MOD) 57 % 52-72 LV Diastolic Length (4C) 8.3 cm LV Systolic Length (4C) 7.5 cm LV Stroke Volume (4C MOD) 74 ml Atria Name Value Normal LA Dimensions LA Volume (4C A-L) 57 ml LA Volume (BP A-L) 52 ml RA Dimensions RA Area (4C) 15.4 cm2 <=18.0 Report Signatures
== END 2024-11-07 08:24 | disposition home or self-care (01) ==
PROVIDERS: PCP Family Medicine; Visit Provider Internal Medicine Cardiovascular Disease
DX: I35.0 Nonrheumatic aortic (valve) stenosis (principal); I36.1 Nonrheumatic tricuspid (valve) insufficiency
CPT/HCPCS: 93306

== ENCOUNTER 2024-12-17 09:45 | Outpatient (CLI) | payer MEDICARE, SELFPAY ==
[2024-12-17 13:58] LABS: Hematocrit 41.7 % (42.0-52.0); Hemoglobin 13.4 g/dL (14.0-18.0); Immature Granulocyte Percent A 0.4 % (0-0.5); Lymphocytes Absolute Auto 1.17 K/mm3 (0.9-3.2); Mean Corpuscular HGB Conc 32.1 g/dl (32-36); Mean Corpuscular Hemoglobin 29.0 pg (26-34); Mean Corpuscular Volume 90.3 fl (80-100); Nucleated Red Blood Cells Absolute Auto 0.000 K/mm3 (0.0-0.012); Nucleated Red Blood Cells Perc 0.0 % (0.0-0.2); Platelet Count Result 177 k/mm3 (150-375); Red Blood Count 4.62 M/mm3 (4.6-6.20); White Blood Count 5.2 K/mm3 (4.5-10.0)
[2024-12-17 14:42] LABS: Thyroid Stimulating Hormone Reflex 2.660 uIU/mL (0.465-4.68)
[2024-12-17 15:56] LABS: Alanine Aminotransferase 21 U/L (6-50); Albumin Level 4.3 g/dL (3.5-5.1); Alkaline Phosphatase 46 U/L (38-126); Anion Gap 7 mmol/L (4-12); Aspartate Amino Transferase 38 U/L (17-59); Bilirubin,Total 0.4 mg/dL (0.2-1.3); Blood Urea Nitrogen 27 mg/dL (9-20); Calcium 9.6 mg/dL (8.4-10.2); Carbon Dioxide 24 mmol/L (22-30); Chloride 106 mmol/L (98-107); Cholesterol 184 mg/dL (0-200); Estimated Glomerular Filt Rate > 60; Glucose 110 mg/dL (65-110); HDL Direct 53 mg/dL; Potassium 4.3 mmol/L (3.4-5.0); Sodium 137 mmol/L (137-145); Total Protein 7.3 g/dL (6.3-8.2); Triglycerides 126 mg/dL (<150)
[2024-12-17 16:57] LABS: Vitamin B12 662.0 pg/mL (239-931)
[2024-12-17 17:20] LABS: Hemoglobin A1C 5.8 % (<5.7)
--- OUTSIDE RECORDS SUMMARY | 2024-12-18 09:32 | XMS_ITS | Clinical Summary ---
Author Organization [facility] [employer] [employer] Address [address] [place] [address] Care Team Providers Care Websphere Process Server Developer Name Role Phone Toan Tucker MD Primary Care Provider [phone] Source Comments [facility]non-owned Affiliates and Associated Physician Practices is amultiple site organization consisting of ambulatory clinics and hospital sitesin [place], [place], [place] and [place]. This disclosure is being madepursuant to the Care Everywhere program and may not contain all information available regarding this patient. Last updated 17.[employer] [facility] [employer] 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 09/29/2024 Travel from Last 3 Months Immunizations Immunization [...] on file Legal Sex Male 5:21 PM HUMAN RESOURCES OFFICE ASSISTANT Gender Identity Not on file Sexual Orientation Not on file Last Filed Vital Signs Vital Sign Reading Time Taken Comments Blood Pressure 118/74 09/29/2024 7:55 AM CDT Pulse 66 09/29/2024 7:55 AM CDT Temperature 37.2 C (98.9 F) 01/16/2024 5:04 PM HUMAN RESOURCES OFFICE ASSISTANT Respiratory Rate 17 01/16/2024 4:50 PM HUMAN RESOURCES OFFICE ASSISTANT Oxygen Saturation 97% 01/16/2024 5:45 PM HUMAN RESOURCES OFFICE ASSISTANT Inhaled Oxygen Concentration - - Weight 107.2 kg (236 lb 6.4 oz) 09/29/2024 7:55 AM CDT Height 172.7 cm (5' 8) 09/29/2024 7:55 AM CDT Body Mass Index 35.94 09/29/2024 7:55 AM CDT Plan of Treatment Upcoming Encounters Date Type Department Care Team (Late st Contact Info) Description 02/18/2025 8:30 AM HUMAN RESOURCES OFFICE ASSISTANT Office Visit [facility] [address] [place] [phone] Josi Cutler AuD [address] [place] [address] [address] [place] [address] 03/30/2025 8:00 AM HUMAN RESOURCES OFFICE ASSISTANT Office Visit [facility] [address] [place] [phone] Miguel A Carmichael MD [address] [place] [address] [address] [place] [address] Health Maintenance Due Date Last Done Comments HEPATITIS C SCREENING 09/19/1965 DTAP/TDAP/TD VACCINES (1 - Tdap) 09/23/1966 DEPRESSION SCREENING 02/13/2024 MEDICARE AWV CALENDAR YEAR 2024 COVID-19 VACCINE (2023- season) 2024 12/14/2023, 11/06/2022, 06/22/2022, Additional history exists INFLUENZA VACCINE (#1) 2024 , 11/06/2022, 11/03/2021, Additional history exists PNEUMOCOCCAL VACCINE 50+ Completed 020, 02/15/2018, 02/14/2018 ZOSTER VACCINE Completed 08/05/2019, 02/2019, 03/20/2013 Respiratory [...] this topic Medical Devices Implanted Type Area Power Project Manager Device Identifier Shelf Expiration Date Model / Serial / Lot Impl [facility] J - [id number] Implanted:Qty: 1 on 01/16/2024 by Miguel A Carmichael MD at [facility] Cochlear Implant Left: Ear [employer] Lina 12/12/2026 CI-1601-0 5 / [id number] / Insurance [facility] MANAGED MEDICARE ADV [facility] MANAGED MEDICARE ADV Care Teams Websphere Process Server Developer Relationship Specialty Start Date End Date Toan Tucker MD [address] [place] [address] PCP - General 12/12/16
[2024-12-18 12:45] LABS: Iron 45 ug/dL (49-181)
[2024-12-18 13:04] LABS: Percent Iron Saturation 13 % (20-50)
[2024-12-18 13:27] LABS: Ferritin 70.20 ng/mL (11.1-264)
== END 2024-12-17 09:46 | disposition home or self-care (01) ==
LOC: ANHGOSHLAB 09:45
PROVIDERS: PCP Family Medicine; Visit Provider Family Medicine
DX: E78.5 Hyperlipidemia, unspecified (principal); Z00.00 Encounter for general adult medical examination without abnormal findings; R73.03 Prediabetes; E53.8 Deficiency of other specified B group vitamins; I10 Essential (primary) hypertension; E55.9 Vitamin D deficiency, unspecified; D64.9 Anemia, unspecified
CPT/HCPCS: 36415; 80053; 80061; 82306; 82607; 82728; 83036; 83540; 83550; 84443; 85025